=== PATIENT | male | born 1960 | race Caucasian/White ===

== ENCOUNTER 2016-07-05 06:01 | Inpatient (IN) | payer MEDICARE ==
[2016-07-05] MEDS ORDERED: Diltiazem DRIP* 100 ML IVPB ONE (06:42)
[2016-07-05] MEDS ORDERED: Diltiazem IV* 5 MG/ML 5 ML VIAL (for loading dose/IV Push) (25 MG) IV SLOW PU ONE ×2 (06:46→07:41)
[2016-07-05 06:48] LABS: Hematocrit 43 % (42-52); Mean Corpuscular HGB Conc 33 g/dl (31-36); Mean Corpuscular Hemoglobin 27 pg (27-31); Mean Corpuscular Volume 81 fL (80-94); Mean Platelet Volume 9 um3 (7.4-10.4); Red Blood Count 5.27 10^6/ul (4.0-5.4); Red Cell Distribution Width 16 % (10.5-15); White Blood Count 8.8 10^3/ul (3.5-10.8)
--- NOTE | 2016-07-05 07:00 | ED ---
Shortness of Breath - HPI Summary HPI Summary: 56 M presents with shortness of breath for a couple weeks. He has a history of a fib and is on Coumadin and metoprolol for it. He receives his care at the [facility]. They were suppose to refer him to a ceo & board director in [place] which they have no yet. He denies any change in his shortness of breath with position changes. He does sleep on many pillows at night and uses a CPAP. He denies any chest pain, palpitations, fever, or cough. He has not noticed any swelling in his legs. He does have a history of DM. - History of Current Complaint Chief Complaint: EDShortnessOfBreath Time Seen by Provider: 07/05/16 06:34 - Allergy/Home Medications Allergies/Adverse Reactions: Allergies Allergy/AdvReac Type Severity Reaction Status Date / Time No Known Allergies Allergy Verified 07/05/16 06:20 Home Medications: Home Medications Atorvastatin* [Lipitor*] 20 mg PO 2100 07/05/16 [History Confirmed 07/05/16] Cholecalciferol [D3-1000] 2,000 units PO DAILY 07/05/16 [History Confirmed 07/05] Fenofibrate [Tricor] 48 mg PO DAILY 07/05/16 [History Confirmed 07/05/16] Lisinopril [Zestril 40 MG-] 40 mg PO DAILY 07/05/16 [History Confirmed 07/05/16] Metformin HCl [Glucophage] 500 mg PO BID 07/05/16 [History Confirmed 07/05/16] Metoprolol Succinate XL TAB* [Toprol XL TAB*] 25 mg PO DAILY 07/05/16 [History Confirmed 07/05/16] Olanzapine [Zyprexa Zydis] 30 mg PO BEDTIME 07/05/16 [History Confirmed 07/05/16 ] Potassium Chlor TAB* [Klor Con ER TAB*] 10 meq PO DAILY 07/05/16 [History Confirmed 07/05/16] Prazosin CAP* [Minipress CAP*] 2 mg PO BEDTIME 07/05/16 [History Confirmed 07/05] Sertraline HCl [Zoloft] 150 mg PO DAILY 07/05/16 [History Confirmed 07/05/16] Trazodone HCl 100 mg PO BEDTIME 07/05/16 [History Confirmed 07/05/16] Warfarin Sodium [Jantoven] 4 mg PO TUWEFR 07/05/16 [History Confirmed 07/05/16] Warfarin TAB(*) [Coumadin TAB(*)] 1.5 mg PO SUMOTHSA 07/05/16 [History Confirmed 07/05/16] glipiZIDE TAB* [Glucotrol TAB*] 5 mg PO SEE INSTRUCTIONS 07/05/16 [History Confirmed 07/05/16] PMH/Surg Hx/FS Hx/Imm Hx Endocrine/Hematology History: Reports: Hx Anticoagulant Therapy - coumadin, Hx Diabetes Cardiovascular History: Reports: Hx Hypertension Denies: Other Cardiovascular Problems/Disorders Respiratory History: Denies: Other Respiratory Problems/Disorders Infectious Disease History: No Infectious Disease History: Denies: Traveled Outside the [place] in Last 30 Days - Family History Known Family History: Positive: Cardiac Disease - Social History Alcohol Use: None Substance Use Type: Reports: None Smoking Status (MU): Never Smoked Tobacco Review of Systems Negative: Fever Negative: Chest Pain Positive: Shortness Of Breath. Negative: Cough Negative: Abdominal Pain All Other Systems Reviewed And Are Negative: Yes Physical Exam Triage Information Reviewed: Yes Vital Signs On Initial Exam: Initial Vitals Temp Pulse Resp BP Pulse Ox 97.0 F 122 16 163/129 96 07/05/16 06:05 07/05/16 06:05 07/05/16 06:05 07/05/16 06:05 07/05/16 06:05 Vital Signs Reviewed: Yes Appearance: Positive: Well-Appearing Skin: Positive: Warm, Dry Head/Face: Positive: Normal Head/Face Inspection Eyes: Positive: Normal, Conjunctiva Clear ENT: Positive: Normal ENT inspection, Pharynx normal, TMs normal Respiratory/Lung Sounds: Positive: Clear to Auscultation, Breath Sounds Present Cardiovascular: Positive: Normal, Tachycardia Abdomen Description: Positive: Nontender, Soft Bowel Sounds: Positive: Present Musculoskeletal: Positive: Other - good pulses, no edema noted of legs. Negative: Edema Left, Edema Right - Domonique Coma Scale Coma Scale Total: 15 Diagnostics - Vital Signs Vital Signs Temp Pulse Resp BP Pulse Ox 07/05/16 06:25 128 18 167/122 96 07/05/16 06:18 124 20 96 07/05/16 06:05 97.0 F 122 16 163/129 96 - Laboratory Lab Results: Lab Results 07/05/16 Range/Units 06:30 WBC 8.8 (3.5-10.8) 10^3/ul RBC 5.27 (4.0-5.4) 10^6/ul Hgb 14.0 (14.0-18.0) g/dl Hct 43 (42-52) % MCV 81 (80-94) fL MCH 27 (27-31) pg MCHC 33 (31-36) g/dl RDW 16 H (10.5-15) % Plt Count 154 (150-450) 10^3/ul MPV 9 (7.4-10.4) um3 Neut % (Auto) 82.6 (38-83) % Lymph % (Auto) 9.9 L (25-47) % [place] % (Auto) 5.1 (1-9) % Eos % (Auto) 1.9 (0-6) % Baso % (Auto) 0.5 (0-2) % Absolute Neuts (auto) 7.3 (1.5-7.7) 10^3/ul Absolute Lymphs (auto) 0.9 L (1.0-4.8) 10^3/ul Absolute Monos (auto) 0.5 (0-0.8) 10^3/ul Absolute Eos (auto) 0.2 (0-0.6) 10^3/ul Absolute Basos (auto) 0 (0-0.2) 10^3/ul Absolute Nucleated RBC 0.01 10^3/ul Nucleated RBC % 0.1 Result Diagrams: 07/05/16 06:30 07/05/16 06:30 Lab Statement: Any lab studies that have been ordered have been reviewed, and results considered in the medical decision making process. - Radiology chest Xray Interpretation: Positive (See Comments) - IMPRESSION: INTERVAL INCREASE IN SIZE THE CARDIAC SILHOUETTE. EVALUATE FOR POSSIBLE MILD INTERSTITIAL CONGESTION OR PERICARDIAL EFFUSION. Radiology Interpretation Completed By: Radiologist - EKG 1st Cardiac Rate: Tachycardia EKG Rhythm: Atrial Fibrillation ST Segment: Non-Specific Ectopy: PVCs Re-Evaluation - Re-Evaluation First Eval Re-Evaluation Time: 08:29 Change: Unchanged Comment: HR now 90-115 after cardiazam Course/Dx - Course Course Of Treatment: 56M presents with shortness of breath for 3 weeks. Follow normally at [facility]. Came in in a fib with HR of 140. dr talamantes said to give cardizem and do cardiac work up. gave cardizem and rate 90-115. BMP elevated and troponin was .04. chest xray shows increase in size of cardiac silloutte. Spoke with dr christianson and said to discuss with hospitalist. hospitalist will admit for potential new onset of CHF - Diagnoses Differential Diagnosis/HQI/PQRI: Positive: CHF, Pulmonary Edema, Other - a fib Provider Diagnoses: Shortness of breath, Atrial fibrillation - Physician Notifications Discussed Care of Patient With: dr koenig Time Discussed With Above Provider: 08:35 - will see patient to discuss dispo Discharge - Discharge Plan Condition: Stable Disposition: [facility]
[2016-07-05 07:04] LABS: Albumin 3.6 g/dL (3.2-5.2); BUN/Creatinine Ratio 17.3 (8-20); EGFR African American 88.7 (>60); Globulin 2.5 g/dL (2-4); Magnesium 1.7 mg/dL (1.9-2.7); Potassium 3.7 mmol/L (3.5-5.0); Total Bilirubin 1.2 mg/dL (0.2-1.0); Total Protein 6.1 g/dL (6.4-8.9)
[2016-07-05 07:16] LABS: Troponin I 0.04 ng/mL (<0.04)
--- NOTE | 2016-07-05 07:21 | RAD ---
INDICATION: Short of breath COMPARISON: October 29, 2012 TECHNIQUE: An AP portable view obtained at 0700 hours is submitted. FINDINGS: Bones/Soft Tissues: There are no acute bony findings. Cardiomediastinal: Interval increase in size the cardiac silhouette. Lungs: There are no infiltrates. Pleura: There are no pleural effusions. Other: None IMPRESSION: INTERVAL INCREASE IN SIZE THE CARDIAC SILHOUETTE. EVALUATE FOR POSSIBLE MILD INTERSTITIAL CONGESTION OR PERICARDIAL EFFUSION.
[2016-07-05 07:27] LABS: TSH (Thyroid Stimulating Horm) 1.77 mcIU/mL (0.34-5.60)
[2016-07-05] MEDS ORDERED: Acetaminophen TAB* 325 MG PO PRN (10:25)
[2016-07-05] MEDS ORDERED: Potassium Chlor TAB* 20 MEQ TAB.ER PO ONE (10:28)
[2016-07-05] MEDS ORDERED: Magnesium Sulfate 2 GM IV* 2 GM/50 ML BAG IVPB ONE (10:30)
[2016-07-05 10:39] LABS: Urine Bacteria Absent (Absent); Urine Bilirubin Negative (Negative); Urine Glucose Negative (Negative); Urine Nitrite Negative (Negative)
[2016-07-05] MEDS: Metoprolol Tartrate TAB* 25 MG PO SCH ×3 (11:03→23:40)
[2016-07-05] MEDS: glipiZIDE TAB* 5 MG PO SCH (11:04)
--- NOTE | 2016-07-05 14:45 | HP ---
ADMISSION HISTORY AND PHYSICAL: DATE OF ADMISSION: 07/05/16 PRIMARY CARE PROVIDER: Yolie Carbajal NP, at the [facility], telephone number [phone]. PSYCHIATRIST: in [place]. HEALTHCARE PROXY: His sister, Macie, and daughter. CODE STATUS: Full. SOURCE OF INFORMATION: History obtained from interview with the patient and his [id number]. RELIABILITY: Good. CHIEF COMPLAINT: Shortness of breath. HISTORY OF PRESENT ILLNESS: This is a 56-year-old man, past medical history including THOMAS and atrial fibrillation. Just over the last 2 weeks, he had increasing shortness of breath, particularly with exertion. He notes that he has been exercising and walks 2 miles on a treadmill ever day. The last time he walked on the treadmill was 3 days prior. His exercise tolerance has now decreased from 2 miles down to 1 block and now he feels he gets short of breath just walking to the bathroom. He has experienced no chest pain, nausea, vomiting, lightheadedness, syncope, palpitations. However, he does endorse PND as well as increasing orthopnea from 1 to 3 pillows. He notices shortness of breath is worse when lying flat overnight and he has had difficulty sleeping. He was seen in the [facility] 3 days prior, was noted to be in atrial fibrillation. Unclear what rate that was; however, he was referred for a Cardiology appointment, which has not yet taken place. Additionally, they started him on an inhaler for his shortness of breath. He also was concerned that his CPAP has not been effective. He has been short of breath over at night. He says the machine does work, but he has been short of breath for 1 month. It is unclear if this is secondary to the machine or worsening CHF symptoms. He denies any lower extremity swelling and endorses a 30- pound weight loss over 3 months, which has been intentional with diet and exercise. Three weeks prior to this presentation, he had flu-like symptoms with fever, myalgias, decreased energy, but no cough, sore throat. He endorses heavy caffeine consumption with at least 4 cups of coffee per day. He drinks alcohol intermittently and notes he "gets plastered" one time every other week, with his last time of heavy alcohol consumption 2 weeks prior to this presentation. He does not smoke cigarettes; however, has significant exposure to secondhand smoke through his girlfriend. He does smoke significant amount of marijuana 4 times per day for 30 years. In the emergency room, he received IV diltiazem 10 mg twice and his heart rate was 100 to 120 when seen by this author. He felt his shortness of breath was much improved. PAST MEDICAL HISTORY: THOMAS on CPAP; atrial fibrillation, on Coumadin; type 2 diabetes, previously on insulin, now removed with weight loss; hypertension. PAST SURGICAL HISTORY: History of septoplasty, right tenoplasty, abdominal surgery for GERD symptoms. MEDICATIONS: Reviewed, per medication list: 1. Atorvastatin 20 mg once daily. 2. Cholecalciferol 2000 units daily. 3. Fenofibrate 48 mg daily. 4. Glucotrol 5 mg before lunch. 5. Coumadin 4 mg Thursday, Thursday, and Thursday. 6. Lisinopril 40 mg daily. 7. Metformin 500 mg twice daily. 8. Metoprolol succinate. It is listed as half a tab of 50 mg, which will be 25 mg, although it is noted that the succinate cannot be split. At this time, we suspect the metoprolol succinate is 25 mg daily. 9. Olanzapine 30 mg at bedtime. 10. Potassium chloride 10 mEq daily. 11. Prazosin 2 mg at bedtime. 12. Sertraline 150 mg daily. 13. Trazodone 100 mg at bedtime. 14. Coumadin 6 mg Thursday, , Thursday, and Thursday. ALLERGIES: No known drug allergies. FAMILY HISTORY: Significant for CAD in his mother, brother, and a sister. His father's history is unknown. SOCIAL HISTORY: No tobacco, although heavy secondhand exposure via his girlfriend. He smokes marijuana 4 times a day for 30 years. He drinks approximately 1 time a week; however, he does drink more heavily 1 time every other month, his last episode 2 weeks prior. He lives at [facility]. REVIEW OF SYSTEMS: As per HPI, otherwise all other systems negative. PHYSICAL EXAMINATION GENERAL: Sitting up in bed, obese, in no apparent distress. VITAL SIGNS: In the emergency room, blood pressure 165/120, heart rate 110 when seen by his author, respiratory rate 16, 97% on 2 L nasal cannula, T-max 97 degrees Fahrenheit. HEENT: Oropharynx is clear. Has moist mucous membranes. Sclerae are anicteric. NECK: Has nonelevated JVD. No cervical or supraclavicular lymphadenopathy. LUNGS: Have diffuse wheeze. HEART: Regularly irregular, tachycardic heart rate. No murmurs, rubs, or gallops. ABDOMEN: Obese, soft, nontender, and nondistended. EXTREMITIES: Warm, well perfused without clubbing, cyanosis, or edema. SKIN: Good skin turgor. Less than 2-second cap refill. The skin is intact and dry. NEUROLOGIC: He is alert and oriented x3. His cranial nerves II to XII are intact. He has no apparent agitation, anxiety, or depression. LABORATORY DATA: Labs reviewed, notable for BUN of 19, creatinine 1.1, glucose 213, hemoglobin A1c added on. White blood cell count is 8.8, hemoglobin 14, platelets 154. Data reviewed: EKG: Atrial fibrillation with ventricular response, 119, left axis, biphasic T waves in V4 and V5. Chest x-ray: Cardiomegaly with increased interstitial congestion. ASSESSMENT AND PLAN: This is a 56-year-old man, past medical history of atrial fibrillation, presenting in rapid ventricular response with symptoms of heart failure. 1. Atrial fibrillation with rapid ventricular response. Replete magnesium and potassium. The patient took his home dose metoprolol this morning. Begin additional 25 mg q.6 hours, titrate up for heart rate control. We will give additional IV metoprolol if needed for heart rate control. Check urine for any evidence of infection. 2. Increased troponin, 0.04 on 2 consecutive checks. We will stop checking. Check transthoracic echocardiogram in the setting of uncontrolled atrial fibrillation and an enlarged cardiac silhouette on x-ray with evidence of heart failure, with orthopnea and new PND. 3. Type 2 diabetes. Add on hemoglobin A1c. Check fingerstick glucose. Continue with home medications. 4. THOMAS. Continue home CPAP, _May benefit from outpatient____ titration study. Although unclear that his increased shortness of breath has anything to do with the CPAP machine. It may just be his CHF. 5. Hyperlipidemia. Continue home medications. 6. DVT prophylaxis. Coumadin INR has been drawn in the emergency room. [id number]/[facility] #: [id number] SANDRA
[2016-07-05] MEDS: metFORMIN* 500 MG TAB PO SCH (16:32)
[2016-07-05] MEDS ORDERED: Warfarin TAB(*) 6 MG PO SCH (17:00)
[2016-07-05] MEDS ORDERED: Warfarin TAB(*) 1 MG PO SCH (17:00)
[2016-07-05] MEDS: Metoprolol Tartrate IV* 1 MG/ML 5 ML VIAL IV PRN ×2 (17:10→21:16)
[2016-07-05] MEDS: Atorvastatin* 20 MG TAB PO SCH (20:56)
[2016-07-05] MEDS: OLANzapine TAB*ODT* 10 MG TAB PO SCH (20:56)
[2016-07-05] MEDS: Prazosin CAP* 1 MG PO SCH (20:57)
[2016-07-05] MEDS: traZODone TAB* 100 MG PO SCH (20:57)
[2016-07-06] MEDS: Metoprolol Tartrate TAB* 25 MG PO SCH ×4 (05:09→22:34)
[2016-07-06] MEDS: Metoprolol Tartrate IV* 1 MG/ML 5 ML VIAL IV PRN (05:35)
[2016-07-06 06:12] LABS: Hematocrit 45 % (42-52); Hemoglobin 14.8 g/dl (14.0-18.0); Mean Corpuscular HGB Conc 33 g/dl (31-36); Mean Corpuscular Hemoglobin 26 pg (27-31); Mean Corpuscular Volume 81 fL (80-94); Mean Platelet Volume 10 um3 (7.4-10.4); Red Blood Count 5.59 10^6/ul (4.0-5.4); Red Cell Distribution Width 16 % (10.5-15); White Blood Count 9.5 10^3/ul (3.5-10.8)
[2016-07-06 06:24] LABS: BUN/Creatinine Ratio 20.7 (8-20); EGFR African American 83.5 (>60); EGFR Non-African American 64.9 (>60)
[2016-07-06] MEDS: metFORMIN* 500 MG TAB PO SCH ×2 (08:56→17:02)
[2016-07-06] MEDS: Sertraline* 50 MG TAB PO SCH (08:56)
[2016-07-06] MEDS: Potassium Chlor TAB* 10 MEQ TAB.ER PO SCH (08:56)
[2016-07-06] MEDS: Lisinopril TAB* 10 MG PO SCH (08:57)
[2016-07-06] MEDS: FENOFIBRATE 48 MG PO SCH (09:02)
[2016-07-06] MEDS: glipiZIDE TAB* 5 MG PO SCH (12:11)
--- NOTE | 2016-07-06 13:15 | PN ---
Subjective Date of Service: 07/06/16 Interval History: Patient has SOB at rest and with minimal exertion. States smokes marijuana 4x/day, never tobacco user. Has had a-fib for >15 years, but never admitted with RVR prior. Denies chest pain Denies h/o COPD or asthma Family History: Unchanged from Admission Social History: Findings - marijuana abuse Past Medical History: Unchanged from Admission Objective Active Medications: Acetaminophen (Tylenol Tab*) 650 mg PO Q4H PRN PRN Reason: FEVER/PAIN Atorvastatin Calcium (Lipitor*) 20 mg PO 2100 [facility] Last Admin: 07/05/16 20:56 Dose: 20 mg Fenofibrate (Tricor(Nf)) 48 mg PO DAILY [facility] Last Admin: 07/06/16 09:02 Dose: Not Given Glipizide (Glucotrol Tab*) 5 mg PO DAILY@1200 [facility] Last Admin: 07/06/16 12:11 Dose: 5 mg Lisinopril (Prinivil Tab*) 40 mg PO DAILY [facility] Last Admin: 07/06/16 08:57 Dose: 40 mg Metformin HCl (Glucophage*) 500 mg PO BID WITH MEALS [facility] Last Admin: 07/06/16 08:56 Dose: 500 mg Metoprolol Tartrate (Lopressor Tab*) 25 mg PO Q6H [facility] Last Admin: 07/06/16 11:16 Dose: 25 mg Metoprolol Tartrate (Lopressor Iv*) 5 mg IV Q6H PRN PRN Reason: heart rate Last Admin: 07/06/16 05:35 Dose: 5 mg Olanzapine (Zyprexa *Odt*) 30 mg PO BEDTIME [facility] Last Admin: 07/05/16 20:56 Dose: 30 mg Potassium Chloride (Klor Con Er Tab*) 10 meq PO DAILY [facility] Last Admin: 07/06/16 08:56 Dose: 10 meq Prazosin HCl (Minipress Cap*) 2 mg PO BEDTIME [facility] Last Admin: 07/05/16 20:57 Dose: 2 mg Sertraline HCl (Zoloft*) 150 mg PO DAILY [facility] Last Admin: 07/06/16 08:56 Dose: 150 mg Trazodone HCl (Desyrel Tab*) 100 mg PO BEDTIME [facility] Last Admin: 07/05/16 20:57 Dose: 100 mg Warfarin Sodium (Coumadin Tab(*)) 4 mg PO DAILY@1700 [facility] PRN Reason: Protocol Vital Signs 07/05/16 07/05/16 07/06/16 23:44 23:47 00:15 Temperature 36.9 C 36.9 C Pulse Rate 138 Respiratory 18 20 Rate Blood Pressure 160/110 150/112 (mmHg) O2 Sat by Pulse 95 99 Oximetry 07/06/16 07/06/16 07/06/16 03:47 04:20 07:40 Temperature 36.8 C Pulse Rate 100 109 Respiratory 20 24 Rate Blood Pressure 165/110 (mmHg) O2 Sat by Pulse 96 Oximetry 07/06/16 08:01 Temperature 36.8 C Pulse Rate 117 Respiratory 16 Rate Blood Pressure 180/115 (mmHg) O2 Sat by Pulse 93 Oximetry Oxygen Devices in Use Now: Nasal Cannula Eyes: No Scleral Icterus Ears/Nose/Mouth/Throat: Clear Oropharnyx Neck: NL Appearance and Movements; NL JVP, No Thyroid Enlargement, Masses Respiratory: Symmetrical Chest Expansion and Respiratory Effort, Clear to Percussion, - - rales right base Cardiovascular: No Edema, - - tachy, irregular, no murmur Abdominal: NL Sounds; No Tenderness; No Distention Lymphatic: No Cervical Adenopathy Extremities: No Edema Neurological: Alert and Oriented x 3 Lines/Tubes/Other Access: Clean, Dry and Intact Peripheral IV Result Diagrams: 07/06/16 05:25 07/06/16 05:25 Additional Lab and Data: Lab Results Laboratory Tests 07/05/16 07/05/16 07/05/16 12:09 16:32 21:23 INR (Anticoag Therapy) Glucose POC Glucose (mg/dL) 133 H 151 H 148 H 07/06/16 07/06/16 07/06/16 05:25 05:25 07:32 INR (Anticoag Therapy) 4.09 H Glucose 132 H POC Glucose (mg/dL) 153 H 07/06/16 11:40 INR (Anticoag Therapy) Glucose POC Glucose (mg/dL) 100 EKG Data: telemetry w/ rate varying 59-180 Assess/Plan/Problems-Billing Assessment: 56 year old with chronic A-fib, schizophrenia, admitted with dyspnea, a-fib with RVR. - Patient Problems (1) Atrial fibrillation with rapid ventricular response Current Visit: Yes Status: Acute Priority: High Code(s): I48.91 - UNSPECIFIED ATRIAL FIBRILLATION SNOMED Code(s): 638969133971088 Comment: -Unclear why rate control is poor at this time. May have pulmonary infection, anxiety. -Rapid rate and uncontrolled HTN likely causing diastolic dysfuction. -echo pending, BNP added on -adding diltiazem PO for rate control -may need dose diuretic later in day -INR 4.0, dose of warfarin reduced, recheck INR tomorrow (2) Troponin level elevated Current Visit: Yes Status: Acute Priority: Medium Code(s): R74.8 - ABNORMAL LEVELS OF OTHER SERUM ENZYMES SNOMED Code(s): 708270743 Comment: -likely demand ischemia -would schedule outpatient stress test (3) DVT prophylaxis Current Visit: Yes Status: Acute Priority: Low Code(s): TPP4567 - SNOMED Code(s): 607934886 Comment: on warfarin PO (4) Dyspnea and respiratory abnormalities Current Visit: Yes Status: Acute Priority: Medium Code(s): R06.00 - DYSPNEA, UNSPECIFIED; R06.89 - OTHER ABNORMALITIES OF BREATHING SNOMED Code(s) : 377102007 Comment: -may have element of viral bronchitis or COPD from chronic marijuana use -outpatient PFTs indicated Status and Disposition: patient wants new PCP, no longer following at [facility]. Offered to see him at my office,call [phone] to make appt prior to discharge
[2016-07-06] MEDS: Diltiazem TAB* 30 MG PO SCH ×2 (13:26→17:21)
[2016-07-06] MEDS ORDERED: Furosemide IV* 10 MG/ML 2 ML VIAL (20 MG) IV ONE (14:10)
[2016-07-06] MEDS ORDERED: Warfarin TAB(*) 4 MG PO SCH (17:00)
[2016-07-06] MEDS: traZODone TAB* 100 MG PO SCH (22:34)
[2016-07-06] MEDS: Atorvastatin* 20 MG TAB PO SCH (22:34)
[2016-07-06] MEDS: OLANzapine TAB*ODT* 10 MG TAB PO SCH (22:34)
[2016-07-06] MEDS: Prazosin CAP* 1 MG PO SCH (22:35)
[2016-07-07] MEDS: Diltiazem TAB* 30 MG PO SCH ×3 (02:32→12:32)
[2016-07-07] MEDS: Metoprolol Tartrate TAB* 25 MG PO SCH ×2 (05:30→10:34)
[2016-07-07] MEDS: Metoprolol Tartrate IV* 1 MG/ML 5 ML VIAL IV PRN ×2 (05:31→23:57)
[2016-07-07 06:40] LABS: BUN/Creatinine Ratio 22.3 (8-20); Calcium 8.8 mg/dL (8.6-10.3); EGFR African American 86.9 (>60); EGFR Non-African American 67.6 (>60); Potassium 3.9 mmol/L (3.5-5.0)
[2016-07-07] MEDS: Potassium Chlor TAB* 10 MEQ TAB.ER PO SCH (08:33)
[2016-07-07] MEDS: metFORMIN* 500 MG TAB PO SCH ×2 (08:33→17:25)
[2016-07-07] MEDS: Lisinopril TAB* 10 MG PO SCH (08:33)
[2016-07-07] MEDS: FENOFIBRATE 48 MG PO SCH (08:34)
[2016-07-07] MEDS: Sertraline* 50 MG TAB PO SCH (08:34)
--- NOTE | 2016-07-07 11:06 | ECHO ---
Patient: NATO PÉREZ [facility] Rec#: [id number] : 1960 Date: 07/07/2016 Age: 56y Height: 167.64 cm / 66.0 in Weight: 111.13 kg / 244.9 lbs Sex: M BSA: 2.18 Room#: 435 Admit Date#: 07/05/2016 Type: Inpatient Referring: Nato Jackson MD Reading: Tyler Sanchez MD Picture Framer: Lucero Terrazas Picture Framer: Peri Pappas [facility] Transthoracic Echocardiogram Indication: CHF, A-Fib BP: 141/114 HR: 101 Rhythm: A-Fib Findings History: HTN, DM, THOMAS on CPAP, A-Fib, secondhand smoker. Technical Comments: The study quality is good. Completed at 0850. Left Ventricle: The left ventricular chamber size is normal. Moderate to severe concentric left ventricular hypertrophy is observed. There is diffuse global hypokinesis of the left ventricle. There is moderately decreased left ventricular systolic function. The estimated ejection fraction is 30-35%. The assessment of diastolic function is non-diagnostic. Left Atrium: The left atrium is mildly dilated. Right Ventricle: The right ventricular cavity size is normal. The right ventricular global systolic function is mildly reduced. Right Atrium: The right atrium is moderately dilated. Aortic Valve: The aortic valve is trileaflet. There is no evidence of aortic regurgitation. There is no evidence of aortic stenosis. Mitral Valve: The mitral valve leaflets are mildly thickened. There is moderate mitral regurgitation. There is no evidence of mitral stenosis. Tricuspid Valve: The tricuspid valve leaflets are normal. There is moderate tricuspid regurgitation. The tricuspid regurgitant jet is directed toward the septum. No pulmonary hypertension is noted. There is no tricuspid stenosis. Pulmonic Valve: The pulmonic valve appears normal. There is a trace pulmonic regurgitation. There is no pulmonic stenosis. Pericardium: A trivial pericardial effusion is visualized. There are no signs of significant hemodynamic compromise. Aorta: There is mild dilatation of the ascending aorta.3.7 cm There is no dilatation of the aortic arch. There is no dilation of the aortic root. Pulmonary Artery: The main pulmonary artery appears normal. Venous: The inferior vena cava is dilated. There is a greater than 50% respiratory change in the inferior vena cava dimension. Summary: There was not any prior study for comparison. Conclusions Moderate to severe concentric left ventricular hypertrophy is observed. There is diffuse global hypokinesis of the left ventricle. The estimated ejection fraction is 30-35%. The assessment of diastolic function is non-diagnostic. The right ventricular global systolic function is mildly reduced. There is no evidence of aortic regurgitation. There is no evidence of aortic stenosis. There is moderate mitral regurgitation. There is moderate tricuspid regurgitation. No pulmonary hypertension is noted. A trivial pericardial effusion is visualized. There are no signs of significant hemodynamic compromise. There is mild dilatation of the ascending aorta.3.7 cm There was not any prior study for comparison. Measurements Name Value Normal Range RVIDd (AP) 2D 3.6 cm (0.9 - 2.6) RVDdMajor (2D) 3.9 cm (2.2 - 4.4) RAd ISD 4CH 6.5 cm (3.4 - 4.9) RA (A4C)W 5 cm (2.9 - 4.6) IVSd (2D) 2.1 cm (0.6 - 1) LVPWd (2D) 1.8 cm (0.6 - 1) LVIDd (2D) 4.6 cm (3.6 - 5.4) LVIDs (2D) 4.1 cm - LV FS (2D) 11 % (25 - 45) Aortic Annulus 2 cm (1.4 - 2.6) Ao root diameter (2D) 3.3 cm (2.1 - 3.5) Ascending Ao 3.7 cm (2.1 - 3.4) Aortic arch 3 cm (1.8 - 3.4) LA dimension (AP) 2D 4.5 cm (2.3 - 3.8) LAd ISD 4CH 5.7 cm (2.9 - 5.3) LA ISD 4CH W 4.8 cm (2.5 - 4.5) Name Value Normal Range LA ESV SP 4CH (A/L) 64 ml - LA ESV SP 2CH (A/L) 92 ml - LA ESV BP (A/L) 77 ml - LA ESV BP (A/L) index 35.34 ml/m2 - LA ESV SP 4CH (MOD) 60 ml - LA ESV SP 2CH (MOD) 88 ml - Name Value Normal Range MV E-wave Vmax 1.1 m/sec - MV deceleration time 145 msec - LV septal e' Vmax 0.07 m/sec - LV lateral e' Vmax 0.09 m/sec - LV E:e' septal ratio 15.7 ratio - LV E:e' lateral ratio 12.2 ratio - Name Value Normal Range AV Vmax 1 m/sec - AV VTI 20 cm - AV peak gradient 3.89 mmHg - AV mean gradient 3.19 mmHg - LVOT Vmax 0.9 m/sec - LVOT VTI 14 cm - LVOT peak gradient 3.33 mmHg - LVOT mean gradient 1.68 mmHg - JAYMIE Vmax 0.4 m/sec - Name Value Normal Range TR Vmax 2 m/sec - TR peak gradient 16 mmHg - RAP 8 mmHg - RVSP 24 mmHg - IVC diameter 2.3 cm - Name Value Normal Range PV Vmax 0.64 m/sec - PV peak gradient 1.71 mmHg -
[2016-07-07] MEDS: glipiZIDE TAB* 5 MG PO SCH (12:32)
[2016-07-07] MEDS ORDERED: Furosemide IV* 10 MG/ML 2 ML VIAL (20 MG) IV SLOW PU ONE (13:54)
--- NOTE | 2016-07-07 16:46 | PN ---
Subjective Date of Service: 07/07/16 Interval History: Patient seen and examined at bedside. He states, "I feel so much better." Denies CP, SOB, abd pain, n/v. Daughter and sister at bedside - they express concern that patient has poor short term memory and will often forget new information given to him. Patient previously not on O2 but is still requiring it here. He previously was established with [facility] but has had poor follow-up. 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 Telemetry: Atrial fibrillation 90s-100s Family History: Unchanged from Admission Social History: Findings - marijuana abuse and chronic secondhand smoke exposure Past Medical History: Unchanged from Admission Objective Active Medications: Acetaminophen (Tylenol Tab*) 650 mg PO Q4H PRN PRN Reason: FEVER/PAIN Atorvastatin Calcium (Lipitor*) 20 mg PO 2100 [facility] Last Admin: 07/06/16 22:34 Dose: 20 mg Fenofibrate (Tricor(Nf)) 48 mg PO DAILY [facility] Last Admin: 07/07/16 08:34 Dose: 48 mg Glipizide (Glucotrol Tab*) 5 mg PO DAILY@1200 [facility] Last Admin: 07/07/16 12:32 Dose: 5 mg Lisinopril (Prinivil Tab*) 40 mg PO DAILY [facility] Last Admin: 07/07/16 08:33 Dose: 40 mg Metformin HCl (Glucophage*) 500 mg PO BID WITH MEALS [facility] Last Admin: 07/07/16 08:33 Dose: 500 mg Metoprolol Succinate (Toprol Xl Tab*) 50 mg PO BID [facility] Metoprolol Tartrate (Lopressor Iv*) 5 mg IV Q6H PRN PRN Reason: heart rate Last Admin: 07/07/16 05:31 Dose: 5 mg Olanzapine (Zyprexa *Odt*) 30 mg PO BEDTIME [facility] Last Admin: 07/06/16 22:34 Dose: 30 mg Potassium Chloride (Klor Con Er Tab*) 10 meq PO DAILY [facility] Last Admin: 07/07/16 08:33 Dose: 10 meq Prazosin HCl (Minipress Cap*) 2 mg PO BEDTIME [facility] Last Admin: 07/06/16 22:35 Dose: 2 mg Sertraline HCl (Zoloft*) 150 mg PO DAILY [facility] Last Admin: 07/07/16 08:34 Dose: 150 mg Trazodone HCl (Desyrel Tab*) 100 mg PO BEDTIME [facility] Last Admin: 07/06/16 22:34 Dose: 100 mg Warfarin Sodium (Coumadin Tab(*)) 4 mg PO DAILY@1700 [facility] PRN Reason: Protocol Last Admin: 07/06/16 17:02 Dose: 4 mg Vital Signs 07/06/16 07/06/16 07/06/16 19:44 20:00 23:37 Temperature 97.9 F 98.3 F Pulse Rate 110 90 Respiratory 22 22 20 Rate Blood Pressure 152/96 140/73 (mmHg) O2 Sat by Pulse 98 97 Oximetry 07/07/16 07/07/16 07/07/16 00:00 02:31 03:42 Temperature 98.6 F Pulse Rate 109 89 Respiratory 28 Rate Blood Pressure 159/109 151/94 (mmHg) O2 Sat by Pulse 97 92 Oximetry 07/07/16 07/07/16 07/07/16 04:17 05:24 06:27 Temperature Pulse Rate 126 106 Respiratory 24 Rate Blood Pressure 142/95 141/114 (mmHg) O2 Sat by Pulse Oximetry 07/07/16 07/07/16 07/07/16 07:56 08:30 08:51 Temperature 98.5 F Pulse Rate 103 Respiratory 16 Rate Blood Pressure 143/113 (mmHg) O2 Sat by Pulse 99 Oximetry 07/07/16 07/07/16 07/07/16 10:38 11:23 12:32 Temperature 97.6 F 98.0 F Pulse Rate 59 79 101 Respiratory 16 Rate Blood Pressure 155/96 159/103 (mmHg) O2 Sat by Pulse 100 97 Oximetry 07/07/16 15:16 Temperature Pulse Rate Respiratory Rate Blood Pressure (mmHg) O2 Sat by Pulse 97 Oximetry Oxygen Devices in Use Now: Nasal Cannula Appearance: Male patient, sitting up in bed, in NAD Eyes: PERRLA Ears/Nose/Mouth/Throat: Clear Oropharnyx, Mucous Membranes Moist Neck: NL Appearance and Movements; NL JVP Respiratory: Symmetrical Chest Expansion and Respiratory Effort, - - fine crackles in bases Cardiovascular: - - irregular rate/rhythm, tachycardic Abdominal: NL Sounds; No Tenderness; No Distention Extremities: No Clubbing, Cyanosis - mild pretibial edema Skin: No Nodules or Sclerosis Neurological: Alert and Oriented x 3 - forgetful Lines/Tubes/Other Access: Clean, Dry and Intact Peripheral IV Result Diagrams: 07/06/16 05:25 07/07/16 05:41 Additional Lab and Data: Lab Results Laboratory Tests 07/05/16 07/05/16 07/05/16 12:09 16:32 21:23 INR (Anticoag Therapy) Glucose POC Glucose (mg/dL) 133 H 151 H 148 H 07/06/16 07/06/16 07/06/16 05:25 05:25 07:32 INR (Anticoag Therapy) 4.09 H Glucose 132 H POC Glucose (mg/dL) 153 H 07/06/16 11:40 INR (Anticoag Therapy) Glucose POC Glucose (mg/dL) 100 EKG Data: telemetry w/ rate varying 59-180 Assess/Plan/Problems-Billing Assessment: 56 year old with chronic A-fib, schizophrenia, admitted with dyspnea, a-fib with RVR. - Patient Problems (1) Atrial fibrillation with rapid ventricular response Current Visit: Yes Code(s): I48.91 - UNSPECIFIED ATRIAL FIBRILLATION Comment : Unclear why rate control is poor at this time. May have pulmonary infection, anxiety. Echocardiogram shows diffuse global hypokinesis of the LV, EF 30-35%, mild reduction of right global systolic function, and moderate MR and TR. Assessment of diastolic dysfunction non-diagnostic. Continue diltiazem. IV furosemide today. Appreciate cardiology consult; patient will need outpatient cardiology follow- up and repeat echocardiogram. INR 3.8, dose of warfarin reduced, recheck INR tomorrow. (2) Dyspnea and respiratory abnormalities Code(s): R06.00 - DYSPNEA, UNSPECIFIED; R06.89 - OTHER ABNORMALITIES OF BREATHING Comment: May have element of viral bronchitis or COPD from chronic marijuana use and secondhand smoke exposure. Outpatient PFTs indicated. (3) Troponin level elevated Code(s): R74.8 - ABNORMAL LEVELS OF OTHER SERUM ENZYMES Comment: Likely demand ischemia, recommend outpatient stress test with PCP. (4) Obstructive sleep apnea Code(s): G47.33 - OBSTRUCTIVE SLEEP APNEA (ADULT) (PEDIATRIC) Comment: Continue CPAP use. ? effectiveness of current therapy. Obtain overnight pulse oximetry. (5) Diabetes mellitus Code(s): E11.9 - TYPE 2 DIABETES MELLITUS WITHOUT COMPLICATIONS Comment: HgbA1c 6.4 Reasonably controlled, BG 130s-170s Continue glipizide and metformin. (6) HLD (hyperlipidemia) Code(s): E78.5 - HYPERLIPIDEMIA, UNSPECIFIED Comment: Continue atorvastatin. (7) DVT prophylaxis Code(s): GTM6291 - Comment: Warfarin Status and Disposition: Inpatient admission, anticipate LOS >2 days. Patient wants new PCP, no longer following at [place]. Dr. Kunz agreed to be new PCP, call [phone] to make appt prior to discharge.
[2016-07-07] MEDS ORDERED: Warfarin TAB(*) 2.5 MG PO ONE (17:00)
[2016-07-07] MEDS: Metoprolol Succinate XL TAB* 50 MG PO SCH ×2 (18:13→20:50)
[2016-07-07] MEDS: Atorvastatin* 20 MG TAB PO SCH (20:49)
[2016-07-07] MEDS: OLANzapine TAB*ODT* 10 MG TAB PO SCH (20:51)
[2016-07-07] MEDS: Prazosin CAP* 1 MG PO SCH (20:52)
[2016-07-07] MEDS: traZODone TAB* 100 MG PO SCH (20:53)
--- NOTE | 2016-07-07 22:30 | CONS ---
CARDIOLOGY CONSULTATION: DATE OF CONSULT: 07/07/16 INDICATION FOR CONSULTATION: Atrial fibrillation, cardiomyopathy. HISTORY OF PRESENT ILLNESS: The patient is a 56-year-old gentleman with a history of chronic atrial fibrillation, obstructive sleep apnea, obesity, congestive heart failure, type 2 diabetes who was admitted to the hospital with shortness of breath. The patient states that over the last 2 weeks or so, he has had progressive shortness of breath and some degree of orthopnea. The patient states that he has noticed that his belly has increasing girth. He has had some mild lower extremity edema. The patient denies any anginal type symptoms. He denies any palpitations. He denies any light headedness, dizziness or syncope. The patient is followed in the cardiology clinic at [facility]. The patient does not recall ever having an echo-cardiogram. He has been on anticoagulation for a number of years. The patient was brought to the emergency room for evaluation. He was found to be in atrial fibrillation with rapid ventricular response and evidence of congestive heart failure. The patient was admitted to the hospital last night, he was given IV diuresis with a significant diuresis and improvement in his symptoms. Again, the patient has no anginal type symptoms. PAST MEDICAL HISTORY: Significant for obstructive sleep apnea, chronic atrial fibrillation, diabetes, hypertension, obesity. PAST SURGICAL HISTORY: Septoplasty, abdominal symptoms for GERD two back surgery. OUTPATIENT MEDICATIONS: 1. Atorvastatin 20 mg a day. 2. Cholecalciferol 2000 units a day. 3. Fenofibrate 48 mg a day. 4. Glucotrol 5 mg once a day. 5. Coumadin as directed. 6. Lisinopril 40 mg a day. 7. Metformin 500 mg b.i.d. 8. Metoprolol succinate 25 mg b.i.d. 9. Potassium 10 mEq a day. 10. Prazosin 2 mg a day. 11. Sertraline 150 mg a day. 12. Trazodone 100 mg a day. The patient is not on a statin therapy. ALLERGIES: No known drug allergies. FAMILY HISTORY: His mother had a history of coronary artery disease. He does not know his father's history. SOCIAL HISTORY: The patient denies any cigarette use. He does smoke marijuana on a regular basis. He has one alcohol drink a week. He lives at [facility]. 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 PHYSICAL EXAMINATION: Height is 5 feet 6 inches, weight is 242 pounds. Temperature 97.6, heart rate is 99, respiratory rate is 16, blood pressure 155/ 96. Sclerae anicteric. Oropharynx is pink without erythema. Carotids are 2+ without bruits. JVD is normal. Thyroid is normal. Cardiac Exam: Irregular, S1 , S2 without any murmurs, rubs or gallops. PMI is difficult to assess. Lungs are clear to auscultation bilaterally. There is no dullness to percussion. Abdomen is obese, soft, nontender, nondistended with normoactive bowel sounds. Extremities show minimal edema. He has 2+ pulses throughout. The patient is awake, alert and oriented. He moves all 4 extremities equally. DIAGNOSTIC STUDIES/LAB DATA: Chemistry is within normal limits. BUN 25, creatinine 1.1. Troponin is minimally elevated at 0.04. BNP is 386. AST and ALT are normal. TSH 1.77. An EKG done today demonstrated atrial fibrillation with a heart rate of 119 beats per minute, otherwise unremarkable. His echocardiogram today demonstrated normal LV size with moderately reduced LV systolic function. Ejection fraction of 35%. There is global hypokinesis. Right ventricle had mildly reduced LV systolic function. There was no evidence of aortic valve disease. There was moderate mitral regurgitation, moderate tricuspid regurgitation. No evidence of pulmonary hypertension. IMPRESSION: This is a 56-year-old gentleman with a history of sleep apnea, history of diabetes and hypertension who was admitted to the hospital because of increased shortness of breath. The patient was found to be in atrial fibrillation, although I think, the patient is chronically in atrial fibrillation, the patient is followed by [facility] in [place]. He is on chronic anticoagulation. In speaking with the patient, the patient states that clearly in the last 5 days , he has had a significant increase in shortness of breath. I think this is due to congestive heart failure and fluid retention. The patient was given IV diuresis last night and had an appropriate diuresis with a significant improvement in his symptoms. The patient had no significant troponin abnormalities. No clear evidence of ischemia. RECOMMENDATIONS: For now, my recommendation is to concentrate on rate control of this patient. I think I would like to see his heart rate under good control for the next 5 to 7 weeks and then a repeat echocardiogram at that time. The patient will be started on long acting Toprol for his rate control. The patient will continue on anticoagulation. The patient does have a history of diabetes. He should be on a statin therapy. The patient's blood pressure will be followed closely. At this point, I do not think any ischemic workup is necessary. I will see the patient for followup. We will get a repeat echocardiogram in 5 weeks to follow up on his LV function. [id number]/[facility] #: [id number] SANDRA
[2016-07-08 05:04] LABS: Hematocrit 43 % (42-52); Hemoglobin 14.2 g/dl (14.0-18.0); Mean Corpuscular HGB Conc 33 g/dl (31-36); Mean Corpuscular Hemoglobin 27 pg (27-31); Mean Corpuscular Volume 81 fL (80-94); Mean Platelet Volume 9 um3 (7.4-10.4); Red Blood Count 5.31 10^6/ul (4.0-5.4); Red Cell Distribution Width 17 % (10.5-15)
[2016-07-08 05:21] LABS: BUN/Creatinine Ratio 22.6 (8-20); EGFR African American 92.6 (>60); Potassium 3.4 mmol/L (3.5-5.0)
[2016-07-08] MEDS: Metoprolol Tartrate IV* 1 MG/ML 5 ML VIAL IV PRN (06:37)
[2016-07-08] MEDS: Lisinopril TAB* 10 MG PO SCH (08:21)
[2016-07-08] MEDS: Sertraline* 50 MG TAB PO SCH (08:22)
[2016-07-08] MEDS: FENOFIBRATE 48 MG PO SCH (08:22)
[2016-07-08] MEDS: Metoprolol Succinate XL TAB* 50 MG PO SCH (08:22)
[2016-07-08] MEDS: metFORMIN* 500 MG TAB PO SCH ×2 (08:22→17:28)
[2016-07-08] MEDS: Potassium Chlor TAB* 10 MEQ TAB.ER PO SCH (08:22)
[2016-07-08] MEDS ORDERED: Metoprolol Succinate XL TAB* 50 MG PO ONE (08:38)
[2016-07-08] MEDS ORDERED: Potassium Chlor TAB* 20 MEQ TAB.ER PO ONE (09:00)
--- NOTE | 2016-07-08 11:44 | PN ---
Subjective Date of Service: 07/08/16 Interval History: Patient seen and examined at bedside. He feels as if his breathing is much better with the metoprolol. He denies CP, abd pain, n/v, BLE edema. He is not requiring O2 as often. The patient states that he has a CPAP machine at home, and he uses it daily. He would like to have his [facility]AS managed by [facility]. Telemetry: Atrial fibrillation 110s-130s Family History: Unchanged from Admission Social History: Findings - marijuana abuse and chronic secondhand smoke exposure Past Medical History: Unchanged from Admission Objective Active Medications: Acetaminophen (Tylenol Tab*) 650 mg PO Q4H PRN PRN Reason: FEVER/PAIN Atorvastatin Calcium (Lipitor*) 20 mg PO 2100 [facility] Last Admin: 07/07/16 20:49 Dose: 20 mg Fenofibrate (Tricor(Nf)) 48 mg PO DAILY [facility] Last Admin: 07/08/16 08:22 Dose: 48 mg Glipizide (Glucotrol Tab*) 5 mg PO DAILY@1200 [facility] Last Admin: 07/07/16 12:32 Dose: 5 mg Lisinopril (Prinivil Tab*) 40 mg PO DAILY [facility] Last Admin: 07/08/16 08:21 Dose: 40 mg Metformin HCl (Glucophage*) 500 mg PO BID WITH MEALS [facility] Last Admin: 07/08/16 08:22 Dose: 500 mg Metoprolol Succinate (Toprol Xl Tab*) 100 mg PO BID [facility] Metoprolol Tartrate (Lopressor Iv*) 5 mg IV Q6H PRN PRN Reason: heart rate Last Admin: 07/08/16 06:37 Dose: 5 mg Olanzapine (Zyprexa *Odt*) 30 mg PO BEDTIME [facility] Last Admin: 07/07/16 20:51 Dose: 30 mg Potassium Chloride (Klor Con Er Tab*) 10 meq PO DAILY [facility] Last Admin: 07/08/16 08:22 Dose: 10 meq Prazosin HCl (Minipress Cap*) 2 mg PO BEDTIME [facility] Last Admin: 07/07/16 20:52 Dose: 2 mg Sertraline HCl (Zoloft*) 150 mg PO DAILY [facility] Last Admin: 07/08/16 08:22 Dose: 150 mg Trazodone HCl (Desyrel Tab*) 100 mg PO BEDTIME [facility] Last Admin: 07/07/16 20:53 Dose: 100 mg Warfarin Sodium (Coumadin Tab(*)) 2.5 mg PO ONCE@1700 [facility] PRN Reason: Protocol Stop: 07/08/16 17:01 Warfarin Sodium (Coumadin Tab(*)) 4 mg PO DAILY@1700 [facility] PRN Reason: Protocol Vital Signs 07/07/16 07/07/16 07/07/16 12:32 15:16 15:44 Temperature 98.4 F Pulse Rate 101 61 Respiratory 24 Rate Blood Pressure 152/106 (mmHg) O2 Sat by Pulse 97 96 Oximetry 07/07/16 07/07/16 07/07/16 18:17 19:51 20:41 Temperature 98.7 F Pulse Rate 105 99 Respiratory 20 20 Rate Blood Pressure 150/111 175/118 (mmHg) O2 Sat by Pulse 98 100 Oximetry 07/07/16 07/08/16 07/08/16 23:58 00:00 00:14 Temperature 96.6 F Pulse Rate 157 Respiratory Rate Blood Pressure 147/106 (mmHg) O2 Sat by Pulse 100 Oximetry 07/08/16 07/08/16 07/08/16 00:53 03:23 06:21 Temperature Pulse Rate 108 Respiratory 24 18 Rate Blood Pressure 153/94 (mmHg) O2 Sat by Pulse 91 96 98 Oximetry 07/08/16 07/08/16 07/08/16 06:49 07:54 08:00 Temperature 97.6 F Pulse Rate 150 110 Respiratory 16 20 Rate Blood Pressure 153/104 178/106 (mmHg) O2 Sat by Pulse 98 Oximetry 07/08/16 08:34 Temperature Pulse Rate Respiratory Rate Blood Pressure 146/85 (mmHg) O2 Sat by Pulse Oximetry Oxygen Devices in Use Now: Nasal Cannula Appearance: Male patient, sitting up in bed, in NAD Eyes: PERRLA Ears/Nose/Mouth/Throat: Clear Oropharnyx, Mucous Membranes Moist Neck: NL Appearance and Movements; NL JVP Respiratory: Symmetrical Chest Expansion and Respiratory Effort, Clear to Auscultation Cardiovascular: - - S1, S2, irregular rate/rhythm, tachycardic Abdominal: NL Sounds; No Tenderness; No Distention Extremities: No Edema Skin: No Rash or Ulcers Neurological: Alert and Oriented x 3 Lines/Tubes/Other Access: Clean, Dry and Intact Peripheral IV Nutrition: Taking PO's Result Diagrams: 07/08/16 04:14 07/08/16 04:14 Additional Lab and Data: Lab Results Laboratory Tests 07/05/16 07/05/16 07/05/16 12:09 16:32 21:23 INR (Anticoag Therapy) Glucose POC Glucose (mg/dL) 133 H 151 H 148 H 07/06/16 07/06/16 07/06/16 05:25 05:25 07:32 INR (Anticoag Therapy) 4.09 H Glucose 132 H POC Glucose (mg/dL) 153 H 07/06/16 11:40 INR (Anticoag Therapy) Glucose POC Glucose (mg/dL) 100 EKG Data: telemetry w/ rate varying 59-180 Assess/Plan/Problems-Billing Assessment: 56 year old with chronic A-fib, schizophrenia, admitted with dyspnea, a-fib with RVR. - Patient Problems (1) Atrial fibrillation with rapid ventricular response Current Visit: Yes Code(s): I48.91 - UNSPECIFIED ATRIAL FIBRILLATION Comment : Appreciate cardiology input, rate control still an issue. Continue Toprol XL at 100 mg BID. Patient should have outpatient follow-up with Dr. Sanchez in 4-6 weeks, as well as follow-up echocardiogram. Echocardiogram shows diffuse global hypokinesis of the LV, EF 30-35%, mild reduction of right global systolic function, and moderate MR and TR. Assessment of diastolic dysfunction non-diagnostic. (2) Dyspnea and respiratory abnormalities Code(s): R06.00 - DYSPNEA, UNSPECIFIED; R06.89 - OTHER ABNORMALITIES OF BREATHING Comment: May have element of viral bronchitis or COPD from chronic marijuana use and secondhand smoke exposure. Outpatient PFTs indicated. (3) Troponin level elevated Code(s): R74.8 - ABNORMAL LEVELS OF OTHER SERUM ENZYMES Comment: Likely demand ischemia, recommend outpatient stress test with PCP. (4) Obstructive sleep apnea Code(s): G47.33 - OBSTRUCTIVE SLEEP APNEA (ADULT) (PEDIATRIC) Comment: Continue CPAP use. Patient reports good adherence at home. ? effectiveness of current therapy. Overnight pulse oximetry with desaturation events; however, this was on BiPAP. Patient currently treated for THOMAS by [facility]; he wishes to switch to [facility] but will require a referral from his new PCP. (5) Diabetes mellitus Code(s): E11.9 - TYPE 2 DIABETES MELLITUS WITHOUT COMPLICATIONS Comment: HgbA1c 6.4 Reasonably controlled, BG 130s-170s Continue glipizide and metformin. (6) HLD (hyperlipidemia) Code(s): E78.5 - HYPERLIPIDEMIA, UNSPECIFIED Comment: Continue atorvastatin. (7) DVT prophylaxis Code(s): BXW4435 - Comment: Warfarin Dose reduced for elevated INR. Recheck INR in AM. Status and Disposition: Inpatient admission, anticipate LOS >2 days. Patient wants new PCP, no longer following at [place]. Dr. Kunz agreed to be new PCP, call [phone] to make appt prior to discharge.
[2016-07-08] MEDS: glipiZIDE TAB* 5 MG PO SCH (12:03)
[2016-07-08] MEDS ORDERED: Warfarin TAB(*) 2.5 MG PO ONE (17:00)
[2016-07-08] MEDS ORDERED: Warfarin TAB(*) 4 MG PO SCH ×2 (17:00)
[2016-07-08] MEDS: hydrALAZINE IV* 20 MG/ML VIAL IV SLOW PU PRN (17:30)
--- NOTE | 2016-07-08 17:46 | PN ---
Hospitalist Progress Note Patient with positive urine culture results today, showing staph haemolyticus. Patient started on ceftriaxone. UTI may be contributing to rate control issues. Continue treatment of UTI at this time; appreciate ID input tomorrow.
[2016-07-08] MEDS ORDERED: cefTRIAXone VIAL(*) 1,000 MG in NS 0.9% 50 ML* 50 ML IVPB SCH (18:00)
[2016-07-08] MEDS: OLANzapine TAB*ODT* 10 MG TAB PO SCH (21:25)
[2016-07-08] MEDS: traZODone TAB* 100 MG PO SCH (21:27)
[2016-07-08] MEDS: Atorvastatin* 20 MG TAB PO SCH (21:27)
[2016-07-08] MEDS: Metoprolol Succinate XL TAB* 100 MG PO SCH (21:27)
[2016-07-08] MEDS: Prazosin CAP* 1 MG PO SCH (21:28)
[2016-07-09 05:20] LABS: BUN/Creatinine Ratio 21.1 (8-20); EGFR African American 89.7 (>60); EGFR Non-African American 69.7 (>60); Potassium 3.5 mmol/L (3.5-5.0)
[2016-07-09] MEDS: Lisinopril TAB* 10 MG PO SCH (07:50)
[2016-07-09] MEDS: Metoprolol Succinate XL TAB* 100 MG PO SCH ×2 (07:50→21:02)
[2016-07-09] MEDS: Potassium Chlor TAB* 10 MEQ TAB.ER PO SCH (07:50)
[2016-07-09] MEDS: metFORMIN* 500 MG TAB PO SCH ×2 (07:50→15:47)
[2016-07-09] MEDS: FENOFIBRATE 48 MG PO SCH (07:51)
[2016-07-09] MEDS: Sertraline* 50 MG TAB PO SCH (07:51)
[2016-07-09] MEDS ORDERED: Diltiazem TAB* 30 MG PO SCH (12:00)
[2016-07-09] MEDS: glipiZIDE TAB* 5 MG PO SCH (12:56)
[2016-07-09] MEDS: Warfarin TAB(*) 4 MG PO SCH (15:46)
[2016-07-09] MEDS: Digoxin TAB* 0.25 MG PO SCH (15:48)
--- NOTE | 2016-07-09 16:52 | PN ---
Subjective Date of Service: 07/09/16 Interval History: This is a 56 yo male with a h/o DM, HLD, THOMAS, and unspecified short term memory loss who presented with c/o SOB. He had afib with RVR. He had no prior hx of afib. Patient has been anticoagulated with Coumadin, now therapeutic. Rate control has been attempted with Metoprolol. He still has a HR ~105-115 at rest and up to 120+ with activity. He was still feeling SOB this am, improved after a dose of cardizem which helped decrease his rate slightly. No sig LE edema. No CP. No c/o palpitations. Objective Active Medications: Acetaminophen (Tylenol Tab*) 650 mg PO Q4H PRN PRN Reason: FEVER/PAIN Atorvastatin Calcium (Lipitor*) 20 mg PO 2100 [facility] Last Admin: 07/08/16 21:27 Dose: 20 mg Digoxin (Lanoxin Tab*) 0.25 mg PO 1700 [facility] Last Admin: 07/09/16 15:48 Dose: 0.25 mg Fenofibrate (Tricor(Nf)) 48 mg PO DAILY [facility] Last Admin: 07/09/16 07:51 Dose: 48 mg Glipizide (Glucotrol Tab*) 5 mg PO DAILY@1200 [facility] Last Admin: 07/09/16 12:56 Dose: 5 mg Hydralazine HCl (Apresoline Iv*) 5 mg IV SLOW PU Q4H PRN PRN Reason: BLOOD PRESSURE Last Admin: 07/08/16 17:30 Dose: 5 mg Lisinopril (Prinivil Tab*) 40 mg PO DAILY [facility] Last Admin: 07/09/16 07:50 Dose: 40 mg Metformin HCl (Glucophage*) 500 mg PO BID WITH MEALS [facility] Last Admin: 07/09/16 15:47 Dose: 500 mg Metoprolol Succinate (Toprol Xl Tab*) 100 mg PO BID [facility] Last Admin: 07/09/16 07:50 Dose: 100 mg Metoprolol Tartrate (Lopressor Iv*) 5 mg IV Q6H PRN PRN Reason: heart rate Last Admin: 07/08/16 06:37 Dose: 5 mg Olanzapine (Zyprexa *Odt*) 30 mg PO BEDTIME [facility] Last Admin: 07/08/16 21:25 Dose: 30 mg Pharmacy Profile Note (Coumadin Daily Reminder*) 1 note FOLLOW UP 1700 [facility] Last Admin: 07/09/16 16:29 Dose: 1 note Potassium Chloride (Klor Con Er Tab*) 10 meq PO DAILY [facility] Last Admin: 07/09/16 07:50 Dose: 10 meq Prazosin HCl (Minipress Cap*) 2 mg PO BEDTIME [facility] Last Admin: 07/08/16 21:28 Dose: 2 mg Sertraline HCl (Zoloft*) 150 mg PO DAILY [facility] Last Admin: 07/09/16 07:51 Dose: 150 mg Trazodone HCl (Desyrel Tab*) 100 mg PO BEDTIME [facility] Last Admin: 07/08/16 21:27 Dose: 100 mg Warfarin Sodium (Coumadin Tab(*)) 4 mg PO DAILY@1700 [facility] PRN Reason: Protocol Last Admin: 07/09/16 15:46 Dose: 4 mg Vital Signs: Temp Pulse Resp BP Pulse Ox 98.1 F 88 18 151/109 98 07/09/16 15:53 07/09/16 15:53 07/09/16 15:53 07/09/16 15:53 07/09/16 15:53 Oxygen Devices in Use Now: Nasal Cannula Appearance: Well appearing middle aged male in NAD Neck: NL Appearance and Movements; NL JVP Respiratory: Symmetrical Chest Expansion and Respiratory Effort, Clear to Auscultation Cardiovascular: NL Sounds; No Murmurs; No JVD, - - irreg rhythm, slightly tachy Abdominal: NL Sounds; No Tenderness; No Distention Extremities: No Edema Skin: No Rash or Ulcers Neurological: Alert and Oriented x 3 Result Diagrams: 07/08/16 04:14 07/09/16 04:28 Additional Lab and Data: . Diagnostic Imaging: Echo - LVEF 30-35%, diffuse hypokinesis CXR - mild interstitial edema with cardiomegaly EKG Data: telemetry - afib, rate 100-120 bpm Assess/Plan/Problems-Billing Assessment: 56 year old with chronic A-fib, schizophrenia, admitted with dyspnea, a-fib with RVR. - Patient Problems (1) Atrial fibrillation with rapid ventricular response Comment: Appreciate cardiology input, rate control still an issue. Cont high dose metoprolol Will trial adding digoxin for additional rate control in the setting of HF Anticoagulated with Coumadin Patient should have outpatient follow-up with Dr. Sanchez in 4-6 weeks, as well as follow-up echocardiogram. (2) UTI (urinary tract infection) Comment: Urine growing staph haemolyticus ?prostatitis, PSA is 0.5, making this less likely Treat with ampicillin and can transition to Augmentin at discharge Check PVR to eval for retention (3) Acute systolic heart failure Comment: LVEF 30-35% with global hypokinesis May be related to tachyarrythmia Will require repeat echo in 4-6 weeks (4) Troponin level elevated Comment: Likely demand ischemia Recommend outpatient stress test (5) Diabetes mellitus Comment: HgbA1c 6.4 Reasonably controlled, BG 130s-170s Continue glipizide and metformin. (6) HLD (hyperlipidemia) Comment: Continue atorvastatin. (7) Obstructive sleep apnea Comment: Continue CPAP use. Patient reports good adherence at home. ? effectiveness of current therapy. Overnight pulse oximetry with desaturation events Recommend repeat sleep study as outpt Status and Disposition: Inpatient admission, anticipate LOS >2 days. Patient wants new PCP, no longer following at [place]. Dr. Kunz agreed to be new PCP, call [phone] to make appt prior to discharge. Possible discharge tomorrow
--- NOTE | 2016-07-09 17:18 | PN ---
Subjective Date of Service: 07/09/16 - CC: SOB Interval History: Breathing and edema have improved since admission. Not aware of palpitations/ racing. Medications Active Medications: Acetaminophen (Tylenol Tab*) 650 mg PO Q4H PRN PRN Reason: FEVER/PAIN Atorvastatin Calcium (Lipitor*) 20 mg PO 2100 [facility] Last Admin: 07/08/16 21:27 Dose: 20 mg Digoxin (Lanoxin Tab*) 0.25 mg PO 1700 [facility] Last Admin: 07/09/16 15:48 Dose: 0.25 mg Fenofibrate (Tricor(Nf)) 48 mg PO DAILY [facility] Last Admin: 07/09/16 07:51 Dose: 48 mg Glipizide (Glucotrol Tab*) 5 mg PO DAILY@1200 [facility] Last Admin: 07/09/16 12:56 Dose: 5 mg Hydralazine HCl (Apresoline Iv*) 5 mg IV SLOW PU Q4H PRN PRN Reason: BLOOD PRESSURE Last Admin: 07/08/16 17:30 Dose: 5 mg Lisinopril (Prinivil Tab*) 40 mg PO DAILY [facility] Last Admin: 07/09/16 07:50 Dose: 40 mg Metformin HCl (Glucophage*) 500 mg PO BID WITH MEALS [facility]CLUDES [facility] Last Admin: 07/09/16 15:47 Dose: 500 mg Metoprolol Succinate (Toprol Xl Tab*) 100 mg PO BID [facility] Last Admin: 07/09/16 07:50 Dose: 100 mg Metoprolol Tartrate (Lopressor Iv*) 5 mg IV Q6H PRN PRN Reason: heart rate Last Admin: 07/08/16 06:37 Dose: 5 mg Olanzapine (Zyprexa *Odt*) 30 mg PO BEDTIME [facility] Last Admin: 07/08/16 21:25 Dose: 30 mg Pharmacy Profile Note (Coumadin Daily Reminder*) 1 note FOLLOW UP 1700 [facility] Last Admin: 07/09/16 16:29 Dose: 1 note Potassium Chloride (Klor Con Er Tab*) 10 meq PO DAILY [facility] Last Admin: 07/09/16 07:50 Dose: 10 meq Prazosin HCl (Minipress Cap*) 2 mg PO BEDTIME [facility] Last Admin: 07/08/16 21:28 Dose: 2 mg Sertraline HCl (Zoloft*) 150 mg PO DAILY [facility] Last Admin: 07/09/16 07:51 Dose: 150 mg Trazodone HCl (Desyrel Tab*) 100 mg PO BEDTIME [facility] Last Admin: 07/08/16 21:27 Dose: 100 mg Warfarin Sodium (Coumadin Tab(*)) 4 mg PO DAILY@1700 [facility] PRN Reason: Protocol Last Admin: 07/09/16 15:46 Dose: 4 mg Objective Vital Signs: Temp Pulse Resp BP Pulse Ox 98.1 F 88 18 151/109 98 07/09/16 15:53 07/09/16 15:53 07/09/16 15:53 07/09/16 15:53 07/09/16 15:53 Oxygen Devices in Use Now: Nasal Cannula Appearance: obese and stocky middle aged gentleman, sitting at 70 degrees, appears comfortable. Eyes: PERRLA Ears/Nose/Mouth/Throat: Clear Oropharnyx, Mucous Membranes Moist Neck: NL Appearance and Movements; NL JVP, Trachea Midline, No Thyroid Enlargement, Masses - thick neck. Respiratory: Symmetrical Chest Expansion and Respiratory Effort - crackes in the bases, mild. Cardiovascular: - - S1S2 irregularly irregular and tachycardic, no murmers. Abdominal: - - rotund, non tender. Extremities: No Edema, No Clubbing, Cyanosis Skin: No Rash or Ulcers Laboratory Results: 07/08/16 04:14 07/09/16 04:28 INR (Anticoag Therapy) 2.33 (0.89-1.11) H 07/09/16 04:28 Total Bilirubin 1.20 mg/dL (0.2-1.0) H 07/05/16 06:30 AST 33 U/L (13-39) 07/05/16 06:30 ALT 65 U/L (7-52) H 07/05/16 06:30 Alkaline Phosphatase 73 U/L (34-104) 07/05/16 06:30 B-Natriuretic Peptide 530 pg/mL (-100) H 07/06/16 05:25 Total Protein 6.1 g/dL (6.4-8.9) L 07/05/16 06:30 Albumin 3.6 g/dL (3.2-5.2) 07/05/16 06:30 Globulin 2.5 g/dL (2-4) 07/05/16 06:30 Albumin/Globulin Ratio 1.4 (1-3) 07/05/16 06:30 TSH 1.77 mcIU/mL (0.34-5.60) 07/05/16 06:30 Diagnostic Imaging: Echo this admission: EF 30-35%. EKG Data: Monitor: afib, rates > 100 bpm. Assessment/Plan 56 yo admitted with SOB, found in afib, uncertain duration with RVR and a newly depressed EF. Improving with rate control and diuresis. Points of Discussion: Afib: Continue beta sharita and coumodin. Addition of digoxen noted, I doubt this will help much in this 56 yo. Consider short or long acting cardizem despite low ER, rate control may override negative effects. [facility]: [facility] guided CV, OK with discharge on meds and out patient f/u, arrangements. CM: May improve/normalize with rate control and/or alevism of NSR. Option of converting pure beta sharita to Coreg as BP remains quite high. Consider aldactone for low EF, CM, volume overload (and KCl 3.5). General: Pt at risk for THOMAS, this could trigger afib, out patient f/u for this recommended. Obesity/DM/weight can contribute to his cardiac health as well, education recommended in and/or outpatient. Elevated ALT noted, ? congestion vs other, recommend repeat sometime this month , in or out patient.
[2016-07-09] MEDS: Ampicillin ADVAN(*) 1 GM in NS 0.9% 50 ML* 50 ML IVPB SCH (18:03)
--- NOTE | 2016-07-09 20:26 | CONS ---
CONSULTATION REPORT: DATE OF CONSULT: 07/09/16 REQUESTING PROVIDER: Ama Askew NP CONSULTING SERVICE: Infectious Disease. REASON FOR CONSULT: Question urinary tract infection. IMPRESSION: 1. Admitted with atrial fibrillation with rapid ventricular response, infectious workup as underlying cause showed urinalysis with 3+ leukocyte esterase, no red cells, and no nitrites. There were squamous cells present. Urine culture with greater than 100,000 colonies of Staph haemolyticus, which is skin nain and usually not a bladder pathogen. He has no history of instrumentation of his urinary tract or prosthetic material present in the urinary tract. He has no urinary frequency or dysuria. He said last week he had a few days of frequency and difficulty emptying his bladder, difficulty initiating stream, and nocturia 4 to 5 times at night, but that has all since resolved. I do not think there is urinary tract infection. I think he could have benign prostatic hypertrophy. 2. Atrial fibrillation with rapid ventricular response. 3. Obstructive sleep apnea, on CPAP. 4. Type 2 diabetes. RECOMMENDATIONS: We will stop ceftriaxone. He is going to notify the nurse next time he urinates today and I have talked to them, they will do a bladder scan to check postvoid residual. If that is significantly elevated, we will reevaluate whether or not this could be an infection that could have triggered some prostate symptoms; however, those have all seemed to resolved this week, so I think it is less likely. HISTORY OF PRESENT ILLNESS: This is a 56-year-old man with atrial fibrillation and diabetes admitted with tachypnea and dyspnea at rest and on exertion. He was found to be on atrial fibrillation and rapid ventricular response, which apparently happens for him from time to time without any clear trigger. He does not have a history of urinary tract infection, urinary tract surgery, or instrumentation. Last week, he did note that he had urinary frequency without dysuria. He had some nocturia 4 to 5 times at night and difficulty emptying, initiating stream, and then some leakage of urine when he did attempt to urinate. That all resolved on its own and over the last few days, he has had none of those symptoms. He does sometimes feel it is hard to initiate a stream and that he thinks is his baseline. PAST MEDICAL HISTORY: 1. Obstructive sleep apnea, on CPAP. 2. Atrial fibrillation, anticoagulated. 3. Type 2 diabetes. 4. Hypertension. 5. Depression. MEDICATIONS: 1. Tylenol. 2. Lipitor. 3. Fenofibrate. 4. Lisinopril. 5. Metoprolol. 6. Olanzapine. 7. Prazosin. 8. Sertraline. 9. Warfarin. 10. Glipizide. 11. Metformin. 12. Trazodone. 13. Ceftriaxone. ALLERGIES: No known drug allergies. FAMILY HISTORY: No recurrent infections. SOCIAL HISTORY: He lives in [facility]. No travel. No sick contacts. Some of his care is at the [place]. He was in the [employer]. REVIEW OF SYSTEMS: All negative except as noted above. PHYSICAL EXAM: General: He is awake and oriented x3, in no distress. Vital Signs: Temperature is 36.4, heart rate 90, respiratory rate 16, blood pressure 150/100, and O2 saturation 95% on room air. HEENT: There is no conjunctival hemorrhage. Oropharynx without lesions. Neck: Neck is supple without nuchal rigidity. Lymph Nodes: There is no cervical, supraclavicular, inguinal, axillary, or epitrochlear lymphadenopathy. Lungs: Clear to auscultation bilaterally. Heart: Irregularly irregular and tachycardic without murmurs. Abdomen: Soft, nontender, and nondistended. There is no suprapubic tenderness or flank tenderness to palpation. Skin: There is no rash or splinter hemorrhages. Musculoskeletal: There is no spine tenderness to palpation or joint synovitis. DIAGNOSTIC STUDIES/LAB DATA: White blood cell count 10, hemoglobin 14, and platelets 166. Creatinine is 1. He had a PSA done today, which was 0.59. Please see impressions and recommendations as outlined above. Thanks for asking me to see Mr. Soto in consultation. [id number]/[facility] #: [id number] SANDRA
[2016-07-09] MEDS: hydrALAZINE IV* 20 MG/ML VIAL IV SLOW PU PRN (21:03)
[2016-07-09] MEDS: Prazosin CAP* 1 MG PO SCH (21:03)
[2016-07-09] MEDS: OLANzapine TAB*ODT* 10 MG TAB PO SCH (21:03)
[2016-07-09] MEDS: Atorvastatin* 20 MG TAB PO SCH (21:03)
[2016-07-09] MEDS: traZODone TAB* 100 MG PO SCH (21:03)
[2016-07-10] MEDS: Ampicillin ADVAN(*) 1 GM in NS 0.9% 50 ML* 50 ML IVPB SCH ×4 (00:20→17:57)
[2016-07-10] MEDS: Metoprolol Tartrate IV* 1 MG/ML 5 ML VIAL IV PRN (03:03)
[2016-07-10] MEDS ORDERED: Furosemide IV* 10 MG/ML 2 ML VIAL (20 MG) IV ONE (08:21)
[2016-07-10] MEDS: Sertraline* 50 MG TAB PO SCH (08:35)
[2016-07-10] MEDS: Lisinopril TAB* 10 MG PO SCH (08:36)
[2016-07-10] MEDS: FENOFIBRATE 48 MG PO SCH (08:36)
[2016-07-10] MEDS: Furosemide TAB* 20 MG PO SCH (08:36)
[2016-07-10] MEDS: Potassium Chlor TAB* 10 MEQ TAB.ER PO SCH (08:37)
[2016-07-10] MEDS: metFORMIN* 500 MG TAB PO SCH ×2 (08:37→16:53)
[2016-07-10] MEDS: Carvedilol TAB* 25 MG PO SCH ×2 (08:37→22:31)
[2016-07-10] MEDS: hydrALAZINE IV* 20 MG/ML VIAL IV SLOW PU PRN (08:38)
[2016-07-10] MEDS ORDERED: Digoxin TAB* 0.25 MG PO ONE (11:03)
--- NOTE | 2016-07-10 11:16 | PN ---
Subjective Date of Service: 07/10/16 Interval History: Patient reports some improvement in his dyspnea but still intermittently complaining of shortness of breath at rest. Perhaps this is during times of tachycardia? He denies CP. No abd pain, n/v. Objective Active Medications: Acetaminophen (Tylenol Tab*) 650 mg PO Q4H PRN PRN Reason: FEVER/PAIN Atorvastatin Calcium (Lipitor*) 20 mg PO 2100 [facility] Last Admin: 07/09/16 21:03 Dose: 20 mg Carvedilol (Coreg Tab*) 25 mg PO BID [facility] Last Admin: 07/10/16 08:37 Dose: 25 mg Digoxin (Lanoxin Tab*) 0.25 mg PO 1700 [facility] Last Admin: 07/09/16 15:48 Dose: 0.25 mg Fenofibrate (Tricor(Nf)) 48 mg PO DAILY [facility] Last Admin: 07/10/16 08:36 Dose: 48 mg Furosemide (Lasix Tab*) 20 mg PO DAILY [facility] Last Admin: 07/10/16 08:36 Dose: 20 mg Glipizide (Glucotrol Tab*) 5 mg PO DAILY@1200 [facility] Last Admin: 07/09/16 12:56 Dose: 5 mg Hydralazine HCl (Apresoline Iv*) 5 mg IV SLOW PU Q4H PRN PRN Reason: BLOOD PRESSURE Last Admin: 07/10/16 08:38 Dose: 5 mg Ampicillin Sodium 1 gm/ Sodium (Chloride) 50 mls @ 200 mls/hr IVPB Q6H [facility] Last Admin: 07/10/16 05:26 Dose: 200 mls/hr Lisinopril (Prinivil Tab*) 40 mg PO DAILY [facility] Last Admin: 07/10/16 08:36 Dose: 40 mg Metformin HCl (Glucophage*) 500 mg PO BID WITH MEALS [facility] Last Admin: 07/10/16 08:37 Dose: 500 mg Metoprolol Tartrate (Lopressor Iv*) 5 mg IV Q6H PRN PRN Reason: heart rate Last Admin: 07/10/16 03:03 Dose: 5 mg Olanzapine (Zyprexa *Odt*) 30 mg PO BEDTIME [facility] Last Admin: 07/09/16 21:03 Dose: 30 mg Pharmacy Profile Note (Coumadin Daily Reminder*) 1 note FOLLOW UP 1700 [facility] Last Admin: 07/09/16 16:29 Dose: 1 note Potassium Chloride (Klor Con Er Tab*) 10 meq PO DAILY [facility] Last Admin: 07/10/16 08:37 Dose: 10 meq Prazosin HCl (Minipress Cap*) 2 mg PO BEDTIME [facility] Last Admin: 07/09/16 21:03 Dose: 2 mg Sertraline HCl (Zoloft*) 150 mg PO DAILY [facility] Last Admin: 07/10/16 08:35 Dose: 150 mg Trazodone HCl (Desyrel Tab*) 100 mg PO BEDTIME [facility] Last Admin: 07/09/16 21:03 Dose: 100 mg Warfarin Sodium (Coumadin Tab(*)) 4 mg PO DAILY@1700 [facility] PRN Reason: Protocol Last Admin: 07/09/16 15:46 Dose: 4 mg Vital Signs: Temp Pulse Resp BP Pulse Ox 97.4 F 122 18 156/117 98 07/10/16 07:38 07/10/16 07:38 07/10/16 08:00 07/10/16 07:38 07/10/16 07:38 Oxygen Devices in Use Now: Nasal Cannula Appearance: Well appearing middle aged gentleman in NAD Neck: NL Appearance and Movements; NL JVP Respiratory: Symmetrical Chest Expansion and Respiratory Effort Cardiovascular: NL Sounds; No Murmurs; No JVD, - - irreg rate/rhythm Abdominal: NL Sounds; No Tenderness; No Distention Extremities: No Edema Skin: No Rash or Ulcers Neurological: Alert and Oriented x 3 Result Diagrams: 07/08/16 04:14 07/09/16 04:28 Additional Lab and Data: . Diagnostic Imaging: Echo - LVEF 30-35%, diffuse hypokinesis CXR - mild interstitial edema with cardiomegaly EKG Data: telemetry - afib, rate 100-120 bpm Assess/Plan/Problems-Billing Assessment: 56 year old with chronic A-fib, schizophrenia, admitted with dyspnea, a-fib with RVR. - Patient Problems (1) Atrial fibrillation with rapid ventricular response Comment: Appreciate cardiology input, rate control still an issue. Blood pressure is also poorly controlled Will switch from metoprolol to carvedilol and give additional dose of oral dig, check serum dig tomorrow Will also check Mag levels, repleting Mag may also help with rate control Cont dig Anticoagulated with Coumadin Patient should have outpatient follow-up with Dr. Sanchez in 4-6 weeks, as well as follow-up echocardiogram. (2) UTI (urinary tract infection) Comment: Urine growing staph haemolyticus ?prostatitis, PSA is 0.5, making this less likely Treat with ampicillin and can transition to Augmentin at discharge Check PVR to eval for retention (3) Acute systolic heart failure Comment: LVEF 30-35% with global hypokinesis May be related to tachyarrythmia Will require repeat echo in 4-6 weeks (4) Troponin level elevated Comment: Likely demand ischemia Recommend outpatient stress test (5) Diabetes mellitus Comment: HgbA1c 6.4 Reasonably controlled, BG 130s-170s Continue glipizide and metformin. (6) HLD (hyperlipidemia) Comment: Continue atorvastatin. (7) Obstructive sleep apnea Comment: Continue CPAP use. Patient reports good adherence at home. ? effectiveness of current therapy. Overnight pulse oximetry with desaturation events Recommend repeat sleep study as outpt Status and Disposition: Inpatient admission, anticipate LOS >2 days. Patient wants new PCP, no longer following at [place]. Dr. Kunz agreed to be new PCP, call [phone] to make appt prior to discharge. Possible discharge tomorrow
[2016-07-10 11:24] LABS: Magnesium 1.7 mg/dL (1.9-2.7)
[2016-07-10] MEDS ORDERED: Magnesium Sulfate 2 GM IV* 2 GM/50 ML BAG IVPB ONE (11:31)
[2016-07-10] MEDS: glipiZIDE TAB* 5 MG PO SCH (12:07)
[2016-07-10] MEDS: Digoxin TAB* 0.25 MG PO SCH (16:51)
[2016-07-10] MEDS: Warfarin TAB(*) 4 MG PO SCH (16:52)
[2016-07-10] MEDS: OLANzapine TAB*ODT* 10 MG TAB PO SCH (22:27)
[2016-07-10] MEDS: Prazosin CAP* 1 MG PO SCH (22:27)
[2016-07-10] MEDS: Atorvastatin* 20 MG TAB PO SCH (22:31)
[2016-07-10] MEDS: traZODone TAB* 100 MG PO SCH (22:31)
[2016-07-11] MEDS: Ampicillin ADVAN(*) 1 GM in NS 0.9% 50 ML* 50 ML IVPB SCH ×2 (01:34→05:43)
[2016-07-11 04:38] LABS: BUN/Creatinine Ratio 20.2 (8-20); Calcium 8.9 mg/dL (8.6-10.3); EGFR African American 94.7 (>60); EGFR Non-African American 73.6 (>60); Potassium 3.5 mmol/L (3.5-5.0)
[2016-07-11 04:49] LABS: Digoxin 0.6 ng/ml (0.8-2.0)
[2016-07-11] MEDS: Sertraline* 50 MG TAB PO SCH (10:18)
[2016-07-11] MEDS: metFORMIN* 500 MG TAB PO SCH (10:18)
[2016-07-11] MEDS: FENOFIBRATE 48 MG PO SCH (10:19)
[2016-07-11] MEDS: Potassium Chlor TAB* 10 MEQ TAB.ER PO SCH (10:19)
[2016-07-11] MEDS: Carvedilol TAB* 25 MG PO SCH (10:19)
[2016-07-11] MEDS: Furosemide TAB* 20 MG PO SCH (10:19)
[2016-07-11] MEDS: Lisinopril TAB* 10 MG PO SCH (10:20)
[2016-07-11 11:53] VITALS: BP 129/111
--- NOTE | 2016-07-12 01:16 | DS ---
DISCHARGE SUMMARY: DATE OF ADMISSION: 07/05/16 DATE OF DISCHARGE: 07/11/16 PRIMARY CARE PROVIDER: Dr. Spencer Kunz. CONSULTING PUFF IRON OPERATOR: Dr. Sanchez. DISCHARGING PROVIDER: JELANI Fisher SUPERVISING PHYSICIAN: Dr. Mauricio Oseguera.* (DICTATED BY JELANI FISHER) PRIMARY DISCHARGE DIAGNOSES: 1. Rapid atrial fibrillation. 2. Bacteriuria. 3. Acute systolic heart failure. 4. Demand ischemia. SECONDARY DISCHARGE DIAGNOSES: 1. [id number] diabetes with hemoglobin A1c of 6.4%. 2. Hyperlipidemia. 3. Obstructive sleep apnea requiring new titration study for CPAP. DISCHARGE MEDICATIONS: 1. Atorvastatin 20 mg p.o. daily. 2. Carvedilol 25 mg p.o. b.i.d. 3. Vitamin D3 2000 units p.o. daily. 4. Digoxin 0.25 mg p.o. daily. 5. Fenofibrate 48 mg p.o. daily. 6. Lasix 20 mg p.o. daily. 7. Lisinopril 40 mg p.o. daily. 8. Magnesium oxide 400 mg p.o. daily. 9. Metformin 500 mg p.o. b.i.d. 10. Zyprexa 30 mg p.o. at bedtime. 11. Potassium chloride 10 mEq p.o. daily. 12. Prazosin 2 mg p.o. at bedtime. 13. Sertraline 150 mg p.o. daily. 14. Trazodone 100 mg p.o. at bedtime. 15. Coumadin 4 mg p.o. daily. 16. Glipizide 5 mg with lunch. MEDICATION CHANGES: 1. Metoprolol discontinued. 2. Start carvedilol. 3. Start digoxin. 4. Start Lasix. 5. Start magnesium oxide. 6. Increase Coumadin to 4 mg daily. HOSPITAL IMAGIN. Chest x-ray, 07/05/16, shows cardiomegaly with mild interstitial congestion and possible pericardial effusion. 2. EKG shows atrial fibrillation with a rate of 120 beats per minute. 3. Transthoracic echocardiogram, 07/05/16, shows left ventricular fraction of 30% to 35% with pattern of global hypokinesis. Mildly reduced right ventricular function. Moderate mitral regurg appreciated. Moderate tricuspid regurg. No pulmonary hypertension noted. There is a very small pericardial effusion noted. 4. Overnight pulse oximetry. He has spent 25% of his overnight time while on CPAP less than 90%. HOSPITAL COURSE: This is a 56-year-old gentleman with history of atrial fibrillation, anticoagulated on Coumadin as well as obstructive sleep apnea, non - insulin dependent diabetes and hyperlipidemia who presented to the emergency department with complaints of shortness of breath. Initial EKG showed atrial fibrillation with a rate of approximately 120 beats per minute. His chest x- ray was consistent with a mild failure picture showing cardiomegaly and some pulmonary venous congestion. The patient was subsequently admitted to the hospital for rate control of his AFib and further treatment of presumed heart failure. Echo, transthoracic echocardiogram showed left ventricular ejection fraction of 30% to 35% with a pattern of global hypokinesis. There was no prior echocardiograms available for comparison but according to his daughter, who is a nurse, this is a new finding. Based on the pattern of global hypokinesis, it is thought to potentially be tachy-mediated. He did have mildly elevated troponin of 0.04 x2 at the time of admission. No complaints of chest pain and no ischemic changes noted on EKG. The patient's rate was incredibly difficult to control. He was titrated up on his metoprolol to 100 mg twice daily. Diltiazem was avoided due to his reduced ejection fraction. He remained greater than 100 beats per minute with complaints of shortness of breath. His metoprolol was subsequently discontinued and transitioned to high dose carvedilol and added digoxin, which reduced his rate to between 80 and 90 beats per minute at rest and was able to maintain about 110 to 115 beats per minute with activity. He was diuresed lightly with Lasix and the patient's complaints of shortness of breath resolved at the time of discharge. Also of note, the patient's urinalysis grew Staph haemolyticus. He did not appear to be acutely ill. Though that this might represent prostatitis. His PSA was normal. Infectious Disease specialist evaluated and felt that his urine may have been contaminated and did not recommend treatment for the Staph. He did receive a few doses of ceftriaxone and ampicillin during his hospitalization. He was afebrile and without leukocytosis or urinary complaints. DISPOSITION AND DISCHARGE PLAN: The patient is being discharged to home. Referral initiated to visiting nurse services. Multiple medication changes were made during his hospital stay noted above. The visiting nurse services as well as his daughter who is a nurse will help him sort these medications out. [facility] He will be established with Dr. Kunz for primary care services and has an appointment scheduled for next week. He also requires Cardiology followup with Dr. Sanchez in 4 to 6 weeks at which point, he is going to have a repeat echocardiogram. JELANI FISHER CC: Dr. Kunz: Dr. Sanchez* [id number]/[facility] #: [id number] SANDRA
== END 2016-07-11 12:33 | disposition home or self-care (01) | DRG 308 ==
LOC: ED 06:01 → MEDTELE 10:25
PROVIDERS: ADMIT Internal Medicine; ATTEND Hospitalist
PROC: 5A09457 Assistance with Respiratory Ventilation, 24-96 Consecutive Hours, Continuous Positive Airway Pressure (ICD-10-PCS; principal; 2016-07-05)
DX: I48.91 Unspecified atrial fibrillation (principal); I50.21 Acute systolic (congestive) heart failure; I24.8 Other forms of acute ischemic heart disease; F07.81 Postconcussional syndrome; I11.0 Hypertensive heart disease with heart failure; I36.1 Nonrheumatic tricuspid (valve) insufficiency; R82.71 Bacteriuria; E11.9 Type 2 diabetes mellitus without complications; E78.5 Hyperlipidemia, unspecified; G47.33 Obstructive sleep apnea (adult) (pediatric); I34.0 Nonrheumatic mitral (valve) insufficiency; F20.9 Schizophrenia, unspecified; R74.8 Abnormal levels of other serum enzymes; F12.10 Cannabis abuse, uncomplicated; Z77.29 Contact with and (suspected) exposure to other hazardous substances; N40.0 Benign prostatic hyperplasia without lower urinary tract symptoms; Z79.84 Long term (current) use of oral hypoglycemic drugs; Z79.899 Other long term (current) drug therapy; Z79.01 Long term (current) use of anticoagulants; Z82.49 Family history of ischemic heart disease and other diseases of the circulatory system
CPT/HCPCS: 36415; 71010; 80048; 80053; 80162; 81003; 81015; 83036; 83735; 83880; 84153; 84443; 84484; 85025; 85610; 87077; 87086; 87186; 93005; 93306; 94660; 94760; 94762; 99285; A9270-GY; G0103; J0360; J0696; J1940; J3475; J3490

== ENCOUNTER 2016-07-24 19:40 | Emergency (ER) | payer MEDICARE ==
--- NOTE | 2016-07-24 21:02 | RAD ---
INDICATION: Hypertension. COMPARISON: Comparison is made with prior chest x-ray studies from July 05, 2016 and a study from May 31, 2012. TECHNIQUE: Dual-energy PA and lateral views of the chest were obtained. FINDINGS: The heart is within normal limits in size. Mediastinal and hilar contours appear within normal limits. The lungs are hyperinflated and clear with flattening of the diaphragms suggestive of chronic obstructive pulmonary disease. No pleural effusion is seen. IMPRESSION: FINDINGS SUGGESTIVE OF COPD, NO EVIDENCE FOR ACUTE FINDING.
[2016-07-24 21:51] LABS: Hematocrit 45 % (42-52); Mean Corpuscular HGB Conc 34 g/dl (31-36); Mean Corpuscular Hemoglobin 27 pg (27-31); Mean Corpuscular Volume 80 fL (80-94); Mean Platelet Volume 8 um3 (7.4-10.4); Red Blood Count 5.64 10^6/ul (4.0-5.4); Red Cell Distribution Width 17 % (10.5-15); White Blood Count 10.4 10^3/ul (3.5-10.8)
--- NOTE | 2016-07-24 22:03 | RAD ---
INDICATION: Dizziness, hypertension. COMPARISON: Comparison is made with a prior CT of the brain from August 19, 2013. TECHNIQUE: Contiguous axial sections of the brain were obtained from the skull base to the vertex without contrast. FINDINGS: The ventricles, cisterns and sulci are enlarged consistent with diffuse atrophy. No significant focal abnormality or mass effect is seen. There is no evidence for hemorrhage. No significant focal osseous abnormality is seen. The visualized portion of the paranasal sinuses and mastoid air cells appear clear. IMPRESSION: 1. NO EVIDENCE FOR GROSS ACUTE INFARCT, MASS EFFECT OR HEMORRHAGE. 2. ATROPHY.
[2016-07-24 22:07] LABS: Albumin 4.1 g/dL (3.2-5.2); Calcium 9.5 mg/dL (8.6-10.3); EGFR African American 93.6 (>60); EGFR Non-African American 72.8 (>60); Potassium 3.4 mmol/L (3.5-5.0); Total Bilirubin 0.7 mg/dL (0.2-1.0); Total Protein 7.1 g/dL (6.4-8.9)
[2016-07-24 22:08] LABS: Troponin I 0.02 ng/mL (<0.04)
[2016-07-24 22:12] LABS: Urine Bilirubin Negative (Negative); Urine Glucose 1+(50 mg/dL) (Negative); Urine Nitrite Negative (Negative)
[2016-07-25] LABS: Digoxin 0.9 ng/ml (0.8-2.0)
[2016-07-25 00:07] VITALS: BP 147/110
--- NOTE | 2016-07-25 06:52 | ED ---
Mihir, DoctorJamia, scribed for Verona Gan MD on 07/24/16 at 2237 . Hypertension - HPI Summary HPI Summary: 56 year old male arrived to [facility] c/o lightheadedness and elevated blood pressure beginning at 15:00. At onset, his blood pressure was measured at home to be 197/120. He additionally reported SOB (not significantly different than baseline), dizziness, and fatigue. However, he reports that his lightheadedness has since resolved. He indicates that he has not taken Warfarin for 1 week, but notes that it is very unlikely that he missed his blood pressure medication. In addition to HTN, he has PMHx of DM and CHF. His blood pressure is usually around 150 (as reported by his daughter); he regularly sees Dr. Kunz (PCP). - History of Current Complaint Chief Complaint: EDHypertension Stated Complaint: HIGH BP Time Seen by Provider: 07/24/16 21:11 Hx Obtained From: Patient, Family/Clothes Marker - daughter Onset/Duration: Started Hours Ago - onset at 15:00, Resolved - lightheadedness resolved Associated Signs & Symptoms: Weakness, Dizziness - Risk Factors Cardiac Risk Factors: Hypertension, Diabetes, CHF, Family History - DM, HTN, CHF - Allergies/Home Medications Allergies/Adverse Reactions: Allergies Allergy/AdvReac Type Severity Reaction Status Date / Time No Known Allergies Allergy Verified 07/05/16 06:20 PMH/Surg Hx/FS Hx/Imm Hx Endocrine/Hematology History: Reports: Hx Anticoagulant Therapy - coumadin, Hx Diabetes Cardiovascular History: Reports: Hx Hypertension Denies: Other Cardiovascular Problems/Disorders Respiratory History: Denies: Other Respiratory Problems/Disorders Psychiatric History: Reports: Hx Schizophrenia - Immunization History Date of Tetanus Vaccine: unk Date of Influenza Vaccine: unk Infectious Disease History: No Infectious Disease History: Denies: Traveled Outside the [place] in Last 30 Days - Family History Known Family History: Positive: Cardiac Disease, Diabetes - Social History Alcohol Use: Weekly Alcohol Amount: 2xweek Substance Use Type: Reports: Marijuana Substance Use Comment - Amount & Last Used: daily Smoking Status (MU): Never Smoked Tobacco Review of Systems Positive: Fatigue. Negative: Fever Positive: Shortness Of Breath - no different than baseline Neurological: Other - dizziness/feeling lightheaded Positive: Weakness All Other Systems Reviewed And Are Negative: Yes Physical Exam Triage Information Reviewed: Yes Vital Signs On Initial Exam: Initial Vitals Temp Pulse Resp BP Pulse Ox 97 F 104 18 172/95 100 07/24/16 19:46 07/24/16 19:46 07/24/16 19:46 07/24/16 19:46 07/24/16 19:46 Vital Signs Reviewed: Yes Appearance: Positive: Well-Appearing, No Pain Distress Skin: Positive: Warm, Skin Color Reflects Adequate Perfusion, Dry Eyes: Positive: EOMI, NELDA ENT: Positive: Pharynx normal, TMs normal Neck: Positive: Supple, Nontender Respiratory/Lung Sounds: Positive: Clear to Auscultation, Breath Sounds Present. Negative: Rales, Rhonchi, Wheezes Cardiovascular: Positive: RRR. Negative: Murmur, Rub Abdomen Description: Positive: Nontender, Soft Bowel Sounds: Positive: Present Musculoskeletal: Positive: Strength/ROM Intact. Negative: Edema Left, Edema Right Neurological: Positive: Sensory/Motor Intact, Alert, Oriented to Person Place, Time, CN Intact II-III Psychiatric: Positive: Affect/Mood Appropriate - [place] Coma Scale Coma Scale Total: 15 Diagnostics - Vital Signs Vital Signs Temp Pulse Resp BP Pulse Ox 07/24/16 19:46 97 F 104 18 172/95 100 - Laboratory Lab Results: Lab Results 07/24/16 07/24/16 07/24/16 Range/Units 21:35 21:35 21:35 WBC 10.4 (3.5-10.8) 10^3/ul RBC 5.64 H (4.0-5.4) 10^6/ul Hgb 15.0 (14.0-18.0) g/dl Hct 45 (42-52) % MCV 80 (80-94) fL MCH 27 (27-31) pg MCHC 34 (31-36) g/dl RDW 17 H (10.5-15) % Plt Count 146 L (150-450) 10^3/ul MPV 8 (7.4-10.4) um3 Neut % (Auto) 71.7 (38-83) % Lymph % (Auto) 15.4 L (25-47) % [place] % (Auto) 8.2 (1-9) % Eos % (Auto) 4.3 (0-6) % Baso % (Auto) 0.4 (0-2) % Absolute Neuts (auto) 7.4 (1.5-7.7) 10^3/ul Absolute Lymphs (auto) 1.6 (1.0-4.8) 10^3/ul Absolute Monos (auto) 0.8 (0-0.8) 10^3/ul Absolute Eos (auto) 0.4 (0-0.6) 10^3/ul Absolute Basos (auto) 0 (0-0.2) 10^3/ul Absolute Nucleated RBC 0 10^3/ul Nucleated RBC % 0 INR (Anticoag Therapy) (0.89-1.11) Sodium 137 (133-145) mmol/L Potassium 3.4 L (3.5-5.0) mmol/L Chloride 102 (101-111) mmol/L Carbon Dioxide 28 (22-32) mmol/L Anion Gap 7 (2-11) mmol/L BUN 20 (6-24) mg/dL Creatinine 1.05 (0.67-1.17) mg/dL Est GFR ( Amer) 93.6 (>60) Est GFR (Non-Af Amer) 72.8 (>60) BUN/Creatinine Ratio 19.0 (8-20) Glucose 134 H (70-100) mg/dL Lactic Acid 1.0 (0.5-2.0) mmol/L Calcium 9.5 (8.6-10.3) mg/dL Total Bilirubin 0.70 (0.2-1.0) mg/dL AST 23 (13-39) U/L ALT 26 (7-52) U/L Alkaline Phosphatase 81 (34-104) U/L Troponin I 0.02 (<0.04) ng/mL Total Protein 7.1 (6.4-8.9) g/dL Albumin 4.1 (3.2-5.2) g/dL Globulin 3.0 (2-4) g/dL Albumin/Globulin Ratio 1.4 (1-3) Urine Color Urine Appearance Urine pH (5-9) Ur Specific [place] (1.010-1.030) Urine Protein (Negative) Urine Ketones (Negative) Urine Blood (Negative) Urine Nitrate (Negative) Urine Bilirubin (Negative) Urine Urobilinogen (Negative) Ur Leukocyte Esterase (Negative) Urine Glucose (Negative) 07/24/16 07/24/16 Range/Units 21:35 22:00 WBC (3.5-10.8) 10^3/ul RBC (4.0-5.4) 10^6/ul Hgb (14.0-18.0) g/dl Hct (42-52) % MCV (80-94) fL MCH (27-31) pg MCHC (31-36) g/dl RDW (10.5-15) % Plt Count (150-450) 10^3/ul MPV (7.4-10.4) um3 Neut % (Auto) (38-83) % Lymph % (Auto) (25-47) % [place] % (Auto) (1-9) % Eos % (Auto) (0-6) % Baso % (Auto) (0-2) % Absolute Neuts (auto) (1.5-7.7) 10^3/ul Absolute Lymphs (auto) (1.0-4.8) 10^3/ul Absolute Monos (auto) (0-0.8) 10^3/ul Absolute Eos (auto) (0-0.6) 10^3/ul Absolute Basos (auto) (0-0.2) 10^3/ul Absolute Nucleated RBC 10^3/ul Nucleated RBC % INR (Anticoag Therapy) 1.44 H (0.89-1.11) Sodium (133-145) mmol/L Potassium (3.5-5.0) mmol/L Chloride (101-111) mmol/L Carbon Dioxide (22-32) mmol/L Anion Gap (2-11) mmol/L BUN (6-24) mg/dL Creatinine (0.67-1.17) mg/dL Est GFR ( Amer) (>60) Est GFR (Non-Af Amer) (>60) BUN/Creatinine Ratio (8-20) Glucose (70-100) mg/dL Lactic Acid (0.5-2.0) mmol/L Calcium (8.6-10.3) mg/dL Total Bilirubin (0.2-1.0) mg/dL AST (13-39) U/L ALT (7-52) U/L Alkaline Phosphatase (34-104) U/L Troponin I (<0.04) ng/mL Total Protein (6.4-8.9) g/dL Albumin (3.2-5.2) g/dL Globulin (2-4) g/dL Albumin/Globulin Ratio (1-3) Urine Color Yellow Urine Appearance Clear Urine pH 6.0 (5-9) Ur Specific [place] 1.018 (1.010-1.030) Urine Protein Negative (Negative) Urine Ketones Negative (Negative) Urine Blood Negative (Negative) Urine Nitrate Negative (Negative) Urine Bilirubin Negative (Negative) Urine Urobilinogen Positive H (Negative) Ur Leukocyte Esterase Negative (Negative) Urine Glucose 1+(50 mg/dl) H (Negative) Result Diagrams: 07/24/16 21:35 07/24/16 21:35 Lab Statement: Any lab studies that have been ordered have been reviewed, and results considered in the medical decision making process. - Radiology Chest X-ray Radiology Interpretation Completed By: Radiologist - IMPRESSION: FINDINGS SUGGESTIVE OF COPD, NO EVIDENCE FOR ACUTE FINDING. - CT Brain CT CT Interpretation Completed By: Radiologist - IMPRESSION: 1. NO EVIDENCE FOR GROSS ACUTE INFARCT, MASS EFFECT OR HEMORRHAGE. 2. ATROPHY. - EKG 19:57 Cardiac Rate: NL EKG Rhythm: Atrial Fibrillation Ectopy: None EKG Interpretation: Anterior and Inferior Qs. EKG Comparison: No Significant Change - No change from EKG on 06/27/2016 22:34 Cardiac Rate: NL - 97 BPM EKG Rhythm: Atrial Fibrillation Ectopy: None EKG Comparison: No Significant Change - from EKG taken on 07/24/2016 at 19:57 Re-Evaluation - Re-Evaluation First Eval Re-Evaluation Time: 23:45 Change: Improved - Discussed plans to discharge patient, patient seemed agreeable. Hypertension Course/Dx - Course Course Of Treatment: pt with elevated bp that resolved with his night time dose of meds here. pt and family to contact pmd about meds and whether they need to be adjusted - Diagnoses Provider Diagnoses: Hypertension Discharge - Discharge Plan Condition: Stable Disposition: HOME Patient Education Materials: Hypertension (ED) Referrals: Spencer Kunz MD [Primary Care Provider] - The documentation as recorded by the Doctor vega Tahera accurately reflects the service I personally performed and the decisions made by me, Verona Gan MD.
== END 2016-07-25 00:12 | disposition home or self-care (01) ==
LOC: ED 19:40
DX: I10 Essential (primary) hypertension (principal); R42 Dizziness and giddiness; R53.1 Weakness; R53.83 Other fatigue; R06.02 Shortness of breath
CPT/HCPCS: 36415; 70450; 71020; 80053; 80162; 81003; 83605; 84484; 85025; 85610; 93005; 99282

== ENCOUNTER 2016-08-22 12:56 | Observation (INO) | payer MEDICARE ==
[2016-08-22 13:52] LABS: Hematocrit 41 % (42-52); Hemoglobin 13.8 g/dl (14.0-18.0); Mean Corpuscular HGB Conc 34 g/dl (31-36); Mean Corpuscular Hemoglobin 27 pg (27-31); Mean Corpuscular Volume 79 fL (80-94); Mean Platelet Volume 8 um3 (7.4-10.4); Red Blood Count 5.13 10^6/ul (4.0-5.4); Red Cell Distribution Width 17 % (10.5-15); White Blood Count 7.2 10^3/ul (3.5-10.8)
--- NOTE | 2016-08-22 14:06 | RAD ---
HISTORY: Syncope COMPARISONS: July 24, 2016 TECHNIQUE: Multiple contiguous axial CT scans were obtained of the head without intravenous contrast. FINDINGS: HEMORRHAGE/INFARCT: There is no hemorrhage or acute infarct. MASSES/SHIFT: There is no mass or shift. EXTRA-AXIAL SPACES: There are no extra-axial fluid collections. SULCI AND VENTRICLES: The sulci and ventricles are normal in size and position for the patient's stated age. CEREBRUM: There are no focal parenchymal abnormalities. BRAINSTEM: There are no focal parenchymal abnormalities. CEREBELLUM: There are no focal parenchymal abnormalities. VESSELS: The vessels are grossly normal. PARANASAL SINUSES: The paranasal sinuses are clear. ORBITS: The orbits are unremarkable. BONES AND SOFT TISSUE: No bone or soft tissue abnormalities are noted. OTHER: None IMPRESSION: NO ACUTE INTRACRANIAL PATHOLOGY.
--- NOTE | 2016-08-22 14:08 | RAD ---
Indication: Syncope. Single view of the chest including dual energy PA views demonstrates no mediastinal shift. This cardiomegaly. Lungs are clear. When compared to previous exam of July 24, 2016 no significant change is noted. IMPRESSION: No active cardiopulmonary disease is noted.
[2016-08-22 14:09] LABS: ALT 22 U/L (7-52); AST 21 U/L (13-39); Albumin 3.8 g/dL (3.2-5.2); Alkaline Phosphatase 72 U/L (34-104); Anion Gap 5 mmol/L (2-11); BUN/Creatinine Ratio 15.9 (8-20); Blood Urea Nitrogen 26 mg/dL (6-24); CO2 Carbon Dioxide 30 mmol/L (22-32); Calcium 9.2 mg/dL (8.6-10.3); Chloride 101 mmol/L (101-111); EGFR Non-African American 43.5 (>60); Globulin 2.6 g/dL (2-4); Glucose 105 mg/dL (70-100); Magnesium 1.8 mg/dL (1.9-2.7); Potassium 3.9 mmol/L (3.5-5.0); Sodium 136 mmol/L (133-145); Total Protein 6.4 g/dL (6.4-8.9)
[2016-08-22 14:48] LABS: Alcohol < 10 mg/dL (<10)
[2016-08-22 14:49] LABS: TSH (Thyroid Stimulating Horm) 0.54 mcIU/mL (0.34-5.60)
[2016-08-22 16:51] LABS: Urine Bilirubin Negative (Negative); Urine Glucose Negative (Negative); Urine Nitrite Negative (Negative)
[2016-08-22] MEDS ORDERED: NS 0.9% 1000 ML* 1,000 ML IV ONE (16:52)
[2016-08-22] MEDS ORDERED: Magnesium Oxide TAB* 400 MG PO ONE (16:59)
[2016-08-22 17:09] LABS: Benzodiazepine Urine Screen None Detected (None Detect)
[2016-08-22] MEDS ORDERED: Dextrose 50% Syringe 50 ML* 25 GM/50 ML SYRINGE IV PUSH PRN (17:46)
[2016-08-22] MEDS ORDERED: Magnesium Sulfate 2 GM IV* 2 GM/50 ML BAG IVPB ONE (17:50)
[2016-08-22] MEDS ORDERED: NS 0.9% 500 ML BAG* 500 ML IV SCH (19:00)
[2016-08-22] MEDS ORDERED: Prazosin CAP* 1 MG PO SCH (21:00)
[2016-08-22] MEDS ORDERED: Carvedilol TAB* 6.25 MG PO SCH (21:00)
[2016-08-22] MEDS ORDERED: OLANzapine TAB* 10 MG PO SCH (21:00)
[2016-08-22] MEDS ORDERED: traZODone TAB* 100 MG PO SCH (21:00)
[2016-08-22] MEDS ORDERED: Atorvastatin* 20 MG TAB PO SCH (21:00)
[2016-08-22] MEDS: Carvedilol TAB* 25 MG PO SCH (21:27)
--- NOTE | 2016-08-22 23:57 | HP ---
HOSPITAL MEDICINE HISTORY AND PHYSICAL: DATE OF ADMISSION: 08/22/16 PRIMARY CARE PHYSICIAN: Dr. Kunz. ATTENDING PHYSICIAN: Dr. Lev Issa* (dictation provided by Aliyah Hearn NP). CHIEF COMPLAINT: Syncope with ongoing lightheadedness. HISTORY OF PRESENT ILLNESS: Mr. Soto is a 56-year-old male who was most recently discharged from our hospital on 07/11/16 after being treated for rapid atrial fibrillation with acute systolic heart failure. In addition to this, the patient does have a history of type 2 diabetes which is non-insulin dependent, hyperlipidemia, and obstructive sleep apnea. Mr. Soto states that since going home on 07/21/16, he has had ongoing issues with lightheadedness. He uses the word dizziness to describe his symptoms, but he does deny any room spinning and only reports that he feels unsteady on his feet and lightheaded. He states that the sensation is worse when he goes from sitting to standing. Last night, he had a syncopal episode. He states he was walking into his kitchen to wash some dishes when he suddenly passed out. He caught himself on the way down on the cabinet and was able to lower himself down into the ground. He awoke and felt okay. In addition to this episode, the patient does report that prior to the last hospitalization a few months ago , he had a similar episode where he syncopized while out shopping with a friend. This episode had no prodromal symptoms and he was fine when he awoke after a few seconds. In addition to these symptoms, the patient states that he has had ongoing shortness of breath with exertion. His story is not quite clear but he does state that the shortness of breath with exertion was present prior to his last hospitalization and it is not clear if it is actually getting any worse. He denies any fevers, chills, cough, chest pain, nausea, or abdominal pain. In the emergency room, Mr. Soto had labs which show acute kidney injury which is mild with a BUN of 26 and creatinine of 1.64. His troponin is normal at 0.00. BNP is very low at 89. The remainder of his workup is essentially unremarkable. His EKG shows atrial fibrillation with controlled rate of 68. PAST MEDICAL HISTORY: 1. History of rapid atrial fibrillation with hospitalization in July 2016, on warfarin. 2. Type 2 diabetes, non-insulin dependent. 3. Systolic congestive heart failure, chronic, with EF of 30% to 35%. 4. Obstructive sleep apnea. 5. Hyperlipidemia. MEDICATIONS: 1. Carvedilol 25 mg p.o. b.i.d. 2. Cholecalciferol 2000 units p.o. daily. 3. Furosemide 20 mg p.o. daily (started at last hospitalization in July 2016). 4. Magnesium oxide 400 mg p.o. daily. 5. Metformin 500 mg p.o. b.i.d. 6. Glipizide 5 mg p.o. daily with meal. 7. Atorvastatin 20 mg p.o. daily. 8. Digoxin 0.25 mg p.o. daily. 9. Fenofibrate 48 mg p.o. daily. 10. Lisinopril 40 mg p.o. daily. 11. Olanzapine 30 mg p.o. bedtime. 12. Potassium chloride 10 mEq p.o. daily. 13. Prazosin 2 mg p.o. at bedtime. 14. Sertraline 150 mg p.o. daily. 15. Trazodone 100 mg p.o. at bedtime. 16. Warfarin 4 mg p.o. daily. ALLERGIES: No known drug allergies. FAMILY HISTORY: The patient reports that his mother had coronary artery disease as did his brother and sister. His father's history is not known. SOCIAL HISTORY: No report of alcohol or tobacco use. He smokes marijuana 4 times a day and has done so for the past 30 years. He actually does drink alcohol, but it is only very occasionally. He lives at [facility] and states that his daughter, Khalida, will be the healthcare proxy. REVIEW OF SYSTEMS: A 14-point review of systems was completed and all those not mentioned above were negative. PHYSICAL EXAMINATION GENERAL: Mr. Soto is sitting up in the bed. He is in no acute distress. He does state he feels lightheaded while seated. VITAL SIGNS: Temperature 97.6, heart rate 73, respiratory rate 16, O2 saturation 98% on room air, blood pressure 129/82. LUNGS: Clear to auscultation bilaterally with no accessory muscle use and good aeration. HEART: S1, S2. No murmur, rub, or gallop and regular. ABDOMEN: Soft, nontender with bowel sounds positive x4. EXTREMITIES: No cyanosis or edema. NEUROLOGIC: He is alert and oriented x3. He moves all extremities equally. There is no facial asymmetry or focal weakness. Extraocular movements are intact. SKIN: Intact. LABORATORY DATA AND DIAGNOSTIC STUDIES: WBC 7.2, hemoglobin 13.8, hematocrit 41, platelet count 131. INR 2.07. Sodium 136, potassium 3.9, chloride 101, serum bicarbonate 30, BUN 26, creatinine 1.64, glucose 105, lactic acid 1.2, magnesium 1.8. Troponin 0.00. BNP 89. Urine is negative for infection. Cannabinoid screen is positive. Serum alcohol level is less than 10. Chest x-ray shows no active cardiopulmonary disease. CT of brain is read as follows: "No acute intracranial pathology." EKG shows atrial fibrillation with a heart rate about 70. No evidence of ischemia. ASSESSMENT: Mr. Soto is a 56-year-old male with past medical history of atrial fibrillation with chronic systolic congestive heart failure and ejection fraction of 30% to 35% as well as non-insulin dependent diabetes and obstructive sleep apnea who presents to the hospital today with lightheadedness resulting in a syncopal episode. Our plans are for observation in the hospital for the followin. Syncope: The patient states he did have a syncopal episode prior to his last hospitalization, so it increases the likelihood the process is related to an arrhythmia, especially in the setting of his low ejection fraction. In addition to this, I am concerned that the patient has likely overdiuresed due to the elevated BUN and creatinine. He was started on Lasix on his last hospitalization back in July. I think that this hypovolemia could cause lightheadedness, syncope, and orthostatic hypotension which he is evidencing in the emergency room. Plans are to hold Lasix. I am going to give him a very small amount of fluid and then recheck his orthostatic vital signs in the morning. For concern of arrhythmia, plan to monitor on telemetry unit. The patient had a transthoracic echocardiogram during the last admission. 2. Acute kidney injury: Again, I plan to get a small amount of IV fluids. I think this is secondary to dehydration in the setting of Lasix use. Plan to hold Lasix and lisinopril for the morning until his hydration status is improved. 3. Orthostatic hypotension: I am going to stop his lisinopril for the moment. I will continue on his carvedilol. I am also holding his Lasix as noted above. 4. Atrial fibrillation: Continue digoxin and carvedilol. 5. DVT prophylaxis with warfarin. 6. Code status is full code. 7. Obstructive sleep apnea: The patient should have CPAP from the [facility]. 8. Diabetes: The patient will have blood glucoses q.a.c. with lispro sliding scale. TIME SPENT: Approximately 60 minutes were spent on the admission of this patient, more than half time spent with the patient at the bedside reviewing the events leading up to this hospitalization, performing the physical examination, and reviewing the plan of care. ALIYAH HEARN NP CC: Dr. Kunz* [id number]/CPS #: [id number] SANDRA
[2016-08-23 05:58] LABS: BUN/Creatinine Ratio 18.6 (8-20); Calcium 8.8 mg/dL (8.6-10.3); EGFR African American 73.8 (>60); EGFR Non-African American 57.4 (>60); Potassium 3.8 mmol/L (3.5-5.0)
[2016-08-23] MEDS: Carvedilol TAB* 25 MG PO SCH (07:47)
[2016-08-23] MEDS: Insulin LISPRO* 1 UNITS UNIT SUBCUT SCH ×2 (07:48→11:38)
--- NOTE | 2016-08-23 08:15 | ED ---
Aminta Ash Matthew, scribed for Armando Anaya MD on 08/22/16 at 1410 . Syncope/Near Syncope - HPI Summary HPI Summary: A 56 y/o male presents to the ED for a syncopal episode that occurred last night. The patient states that he was in the kitchen getting ready to clean his dishes when he had a syncopal episode. He states that he fell to the floor and loss consciousness for 30 seconds. During the episode, he was SOB. He denies chest pain and diaphoresis. Currently, associated symptoms include dizziness, lightheadedness, and SOB w/ excretion. His symptoms improving lying down. The patient also takes medication for schizophrenia. He has a Hx of CHF and low EF. - History Of Current Complaint Chief Complaint: EDSyncope Time Seen by Provider: 08/22/16 13:29 Hx Obtained From: Patient Onset/Duration: Sudden Onset Timing: Seconds Context: Unwitnessed, Loss Of Consciousness Activity At Onset: Other - Standing Alleviating Factor(s): Position Change - lying down Associated Signs And Symptoms: Dizzy, Lightheadedness, Shortness Of Breath - Allergies/Home Medications Allergies/Adverse Reactions: Allergies Allergy/AdvReac Type Severity Reaction Status Date / Time No Known Allergies Allergy Verified 07/05/16 06:20 PMH/Surg Hx/FS Hx/Imm Hx Endocrine/Hematology History: Reports: Hx Anticoagulant Therapy - coumadin, Hx Diabetes Cardiovascular History: Reports: Hx Hypertension Denies: Other Cardiovascular Problems/Disorders Respiratory History: Denies: Other Respiratory Problems/Disorders Psychiatric History: Reports: Hx Schizophrenia - Immunization History Date of Tetanus Vaccine: unk Date of Influenza Vaccine: unk Infectious Disease History: No Infectious Disease History: Denies: Traveled Outside the [place] in Last 30 Days - Family History Known Family History: Positive: Cardiac Disease, Diabetes - Social History Alcohol Use: Weekly Alcohol Amount: 2xweek Substance Use Type: Reports: Marijuana Substance Use Comment - Amount & Last Used: daily Smoking Status (MU): Never Smoked Tobacco Review of Systems Constitutional: Negative Eyes: Negative ENT: Negative Cardiovascular: Negative Positive: Shortness Of Breath - w/ excertion Gastrointestinal: Negative Genitourinary: Negative Musculoskeletal: Negative Skin: Negative Neurological: Other - dizziness, lightheadedness Psychological: Normal All Other Systems Reviewed And Are Negative: Yes Physical Exam - Summary Physical Exam Summary: VITAL SIGNS: Reviewed. GENERAL: Patient is an obese male who is lying comfortable in the stretcher. Patient is not in any acute respiratory distress. HEAD AND FACE: No signs of trauma. No ecchymosis, hematomas or skull depressions. No sinus tenderness. EYES: PERRLA, EOMI x 2, No injected conjunctiva, no nystagmus. No photophobia. EARS: Hearing grossly intact. Ear canals and tympanic membranes are within normal limits. MOUTH: Oropharynx within normal limits. NECK: Supple, trachea is midline, no adenopathy, no JVD, no carotid bruit, no c- spine tenderness, neck with full ROM. No meningeal signs, no Kernig's or brudzinskis signs. CHEST: Symmetric, no tenderness at palpation LUNGS: Clear to auscultation bilaterally. No wheezing or crackles. CVS: Irregular rate and rhythm, S1 and S2 present, no murmurs or gallops appreciated. ABDOMEN: Soft, non-tender. No signs of distention. No rebound no guarding, and no masses palpated. Bowel sounds are normal. EXTREMITIES: FROM in all major joints, no edema, no cyanosis or clubbing. NEURO: Alert and oriented x 3. No acute neurological deficits. Speech is normal and follows commands. SKIN: Dry and warm Triage Information Reviewed: Yes Vital Signs On Initial Exam: Initial Vitals Temp Pulse Resp BP Pulse Ox 97.8 F 79 20 134/76 100 08/22/16 12:59 08/22/16 12:59 08/22/16 12:59 08/22/16 12:59 08/22/16 12:59 Vital Signs Reviewed: Yes Diagnostics - Vital Signs Vital Signs Temp Pulse Resp BP Pulse Ox 08/22/16 13:30 68 153/82 98 08/22/16 13:20 67 96 08/22/16 13:18 151/76 08/22/16 13:03 97.6 F 88 20 134/76 100 08/22/16 12:59 97.8 F 79 20 134/76 100 - Laboratory Lab Results: Lab Results 08/22/16 08/22/16 08/22/16 Range/Units 13:35 13:35 13:35 WBC 7.2 (3.5-10.8) 10^3/ul RBC 5.13 (4.0-5.4) 10^6/ul Hgb 13.8 L (14.0-18.0) g/dl Hct 41 L (42-52) % MCV 79 L (80-94) fL MCH 27 (27-31) pg MCHC 34 (31-36) g/dl RDW 17 H (10.5-15) % Plt Count 131 L (150-450) 10^3/ul MPV 8 (7.4-10.4) um3 Neut % (Auto) 70.0 (38-83) % Lymph % (Auto) 17.3 L (25-47) % [place] % (Auto) 8.8 (1-9) % Eos % (Auto) 3.2 (0-6) % Baso % (Auto) 0.7 (0-2) % Absolute Neuts (auto) 5.0 (1.5-7.7) 10^3/ul Absolute Lymphs (auto) 1.2 (1.0-4.8) 10^3/ul Absolute Monos (auto) 0.6 (0-0.8) 10^3/ul Absolute Eos (auto) 0.2 (0-0.6) 10^3/ul Absolute Basos (auto) 0.1 (0-0.2) 10^3/ul Absolute Nucleated RBC 0 10^3/ul Nucleated RBC % 0 Sodium 136 (133-145) mmol/L Potassium 3.9 (3.5-5.0) mmol/L Chloride 101 (101-111) mmol/L Carbon Dioxide 30 (22-32) mmol/L Anion Gap 5 (2-11) mmol/L BUN 26 H (6-24) mg/dL Creatinine 1.64 H (0.67-1.17) mg/dL Est GFR ( Amer) 56.0 (>60) Est GFR (Non-Af Amer) 43.5 (>60) BUN/Creatinine Ratio 15.9 (8-20) Glucose 105 H (70-100) mg/dL Lactic Acid 1.2 (0.5-2.0) mmol/L Calcium 9.2 (8.6-10.3) mg/dL Magnesium 1.8 L (1.9-2.7) mg/dL Total Bilirubin 0.50 (0.2-1.0) mg/dL AST 21 (13-39) U/L ALT 22 (7-52) U/L Alkaline Phosphatase 72 (34-104) U/L Troponin I 0.00 (<0.04) ng/mL B-Natriuretic Peptide ( - 100) pg/mL Total Protein 6.4 (6.4-8.9) g/dL Albumin 3.8 (3.2-5.2) g/dL Globulin 2.6 (2-4) g/dL Albumin/Globulin Ratio 1.5 (1-3) TSH 0.54 (0.34-5.60) mcIU/mL Serum Alcohol < 10 (<10) mg/dL 08/22/16 Range/Units 13:35 WBC (3.5-10.8) 10^3/ul RBC (4.0-5.4) 10^6/ul Hgb (14.0-18.0) g/dl Hct (42-52) % MCV (80-94) fL MCH (27-31) pg MCHC (31-36) g/dl RDW (10.5-15) % Plt Count (150-450) 10^3/ul MPV (7.4-10.4) um3 Neut % (Auto) (38-83) % Lymph % (Auto) (25-47) % [place] % (Auto) (1-9) % Eos % (Auto) (0-6) % Baso % (Auto) (0-2) % Absolute Neuts (auto) (1.5-7.7) 10^3/ul Absolute Lymphs (auto) (1.0-4.8) 10^3/ul Absolute Monos (auto) (0-0.8) 10^3/ul Absolute Eos (auto) (0-0.6) 10^3/ul Absolute Basos (auto) (0-0.2) 10^3/ul Absolute Nucleated RBC 10^3/ul Nucleated RBC % Sodium (133-145) mmol/L Potassium (3.5-5.0) mmol/L Chloride (101-111) mmol/L Carbon Dioxide (22-32) mmol/L Anion Gap (2-11) mmol/L BUN (6-24) mg/dL Creatinine (0.67-1.17) mg/dL Est GFR ( Amer) (>60) Est GFR (Non-Af Amer) (>60) BUN/Creatinine Ratio (8-20) Glucose (70-100) mg/dL Lactic Acid (0.5-2.0) mmol/L Calcium (8.6-10.3) mg/dL Magnesium (1.9-2.7) mg/dL Total Bilirubin (0.2-1.0) mg/dL AST (13-39) U/L ALT (7-52) U/L Alkaline Phosphatase (34-104) U/L Troponin I (<0.04) ng/mL B-Natriuretic Peptide 89 ( - 100) pg/mL Total Protein (6.4-8.9) g/dL Albumin (3.2-5.2) g/dL Globulin (2-4) g/dL Albumin/Globulin Ratio (1-3) TSH (0.34-5.60) mcIU/mL Serum Alcohol (<10) mg/dL Result Diagrams: 08/22/16 13:35 08/23/16 05:26 Lab Statement: Any lab studies that have been ordered have been reviewed, and results considered in the medical decision making process. - Radiology CXR Xray Interpretation: No Acute Changes - IMPRESSION: No active cardiopulmonary disease is noted. Radiology Interpretation Completed By: Radiologist - CT Brain CT CT Interpretation: No Acute Changes - IMPRESSION: NO ACUTE INTRACRANIAL PATHOLOGY. CT Interpretation Completed By: Radiologist - EKG 13:09 Cardiac Rate: NL - 68 bpm EKG Rhythm: Atrial Fibrillation EKG Interpretation: No ST elevation; ST depression in I, II, V4-V6 EKG Comparison: No Significant Change - 07/24/16 Course/Dx Assessment/Plan: A 56 y/o male presents to the ED for a syncopal episode that occurred last night. The patient states that he was in the kitchen getting ready to clean his dishes when he had a syncopal episode. He states that he fell to the floor and loss consciousness for 30 seconds. During the episode, he was SOB. He denies chest pain and diaphoresis. Currently, associated symptoms include dizziness, lightheadedness, and SOB w/ excretion. His symptoms improving lying down. The patient also takes medication for schizophrenia. He has a Hx of CHF and low EF. Blood work WNL except mild anemia. The patient has renal failure with BUN, and Creatinine Glucose 105, Magnesium 1.8. Urinalysis negative UTI. Serum alcohol is negative. CXR shows no acute cardiopulmonary disease. Brain CT shows no acute intracranial pathology. In the ED course, we did orthostatics and it was positive. Therefore, the patient was started on gentle fluids, because the patient had CHF and a low ejection fraction. Therefore, I discussed the findings and test result who accepted the patient for admission. The patient is A&Ox3 and hemodynamically stable. - Diagnoses Differential Diagnosis/HQI/PQRI: Positive: Dysrhythmia, Seizure, Transient Ischemic Attack, Vasovagal Episode Provider Diagnoses: Orthostatic hypotension, Syncope - Physician Notifications Discussed Care Of Patient With: Dr. Issa (Hospitalist) at 16:55 -- Notified of paitent's history and will admit the patient into his services. Discharge - Discharge Plan Condition: Stable Disposition: ADMITTED TO [facility] The documentation as recorded by the Amitna vega Matthew accurately reflects the service I personally performed and the decisions made by me, Armando Anaya MD.
[2016-08-23] MEDS ORDERED: Potassium Chlor TAB* 10 MEQ TAB.ER PO SCH (09:00)
[2016-08-23] MEDS ORDERED: Fenofibrate(NF) 48 MG TAB PO SCH (09:00)
[2016-08-23] MEDS ORDERED: Sertraline* 50 MG TAB PO SCH (09:00)
[2016-08-23] MEDS ORDERED: Digoxin TAB* 0.25 MG PO SCH (09:00)
[2016-08-23] MEDS ORDERED: Lisinopril TAB* 10 MG PO SCH (09:00)
[2016-08-23 12:02] VITALS: BP 116/72
[2016-08-23] MEDS ORDERED: Prazosin CAP* 1 MG PO SCH (12:11)
[2016-08-23 12:37] LABS: Digoxin 0.7 ng/ml (0.8-2.0)
--- NOTE | 2016-08-23 12:41 | DCNOTE ---
Subjective Date of Service: 08/23/16 Interval History: "I feel much better today" but still a little dizzy when walks. He thinks his meds were changed by Dr. Sanchez or Dr. Kunz in the past 2 months but has no idea what the change was. Objective Active Medications: Atorvastatin Calcium (Lipitor*) 20 mg PO 2100 [facility] Last Admin: 08/22/16 21:26 Dose: 20 mg Carvedilol (Coreg Tab*) 25 mg PO BID [facility] Last Admin: 08/23/16 07:47 Dose: 25 mg Dextrose (D50w Syringe 50 Ml*) 12.5 gm IV PUSH .FOR FS < 60 - SS PRN PRN Reason: FS < 60 Digoxin (Lanoxin Tab*) 0.25 mg PO DAILY [facility] Last Admin: 08/23/16 07:46 Dose: 0.25 mg Fenofibrate (Tricor(Nf)) 48 mg PO DAILY [facility] Last Admin: 08/23/16 07:48 Dose: Not Given Insulin Human Lispro (Humalog*) 0 units SUBCUT AC [facility] PRN Reason: Protocol Last Admin: 08/23/16 11:38 Dose: 4 units Lisinopril (Prinivil Tab*) 10 mg PO DAILY [facility] Olanzapine (Zyprexa Tab*) 30 mg PO BEDTIME [facility] Last Admin: 08/22/16 21:26 Dose: 30 mg Pharmacy Profile Note (Coumadin Daily Reminder*) 1 note FOLLOW UP 1700 [facility] Prazosin HCl (Minipress Cap*) 1 mg PO BEDTIME [facility] Sertraline HCl (Zoloft*) 150 mg PO DAILY [facility] Last Admin: 08/23/16 07:47 Dose: 150 mg Trazodone HCl (Desyrel Tab*) 100 mg PO BEDTIME [facility] Last Admin: 08/22/16 21:27 Dose: 100 mg Warfarin Sodium (Coumadin Tab(*)) 4 mg PO 1700 [facility] PRN Reason: Protocol Vital Signs 08/22/16 08/22/16 08/22/16 17:30 18:00 18:30 Temperature Pulse Rate 65 76 Respiratory 16 Rate Blood Pressure 141/96 129/82 153/85 (mmHg) O2 Sat by Pulse 99 98 99 Oximetry 08/22/16 08/22/16 08/23/16 19:19 23:41 03:29 Temperature 97.8 F 97.5 F 96.2 F Pulse Rate 61 60 63 Respiratory 18 20 20 Rate Blood Pressure 180/101 129/76 145/76 (mmHg) O2 Sat by Pulse 95 97 100 Oximetry 08/23/16 08/23/16 08/23/16 06:43 07:21 07:46 Temperature 97.7 F Pulse Rate 69 69 Respiratory 20 20 Rate Blood Pressure 147/92 (mmHg) O2 Sat by Pulse 96 Oximetry 08/23/16 08/23/16 08/23/16 08:54 08:55 08:56 Temperature Pulse Rate 82 100 82 Respiratory 18 18 Rate Blood Pressure 132/80 97/64 132/80 (mmHg) O2 Sat by Pulse 97 94 Oximetry 08/23/16 08/23/16 08:57 11:26 Temperature 97.1 F Pulse Rate 100 59 Respiratory 18 Rate Blood Pressure 97/64 116/72 (mmHg) O2 Sat by Pulse 97 Oximetry Oxygen Devices in Use Now: None Appearance: Alert, sitting on the edge of the bed. In good spirits. Looks comfortable. Eyes: No Scleral Icterus Ears/Nose/Mouth/Throat: Clear Oropharnyx, Mucous Membranes Moist Neck: NL Appearance and Movements; NL JVP, No Thyroid Enlargement, Masses Respiratory: Symmetrical Chest Expansion and Respiratory Effort, Clear to Auscultation, Clear to Percussion Extremities: No Edema, No Clubbing, Cyanosis, - Skin: No Rash or Ulcers, No Nodules or Sclerosis, - Neurological: Alert and Oriented x 3, NL Sensation Result Diagrams: 08/22/16 13:35 08/23/16 05:26 Additional Lab and Data: Lab Results 08/22/16 08/22/16 08/22/16 Range/Units 13:35 13:35 13:35 WBC 7.2 (3.5-10.8) 10^3/ul RBC 5.13 (4.0-5.4) 10^6/ul Hgb 13.8 L (14.0-18.0) g/dl Hct 41 L (42-52) % MCV 79 L (80-94) fL MCH 27 (27-31) pg MCHC 34 (31-36) g/dl RDW 17 H (10.5-15) % Plt Count 131 L (150-450) 10^3/ul MPV 8 (7.4-10.4) um3 Neut % (Auto) 70.0 (38-83) % Lymph % (Auto) 17.3 L (25-47) % [place] % (Auto) 8.8 (1-9) % Eos % (Auto) 3.2 (0-6) % Baso % (Auto) 0.7 (0-2) % Absolute Neuts (auto) 5.0 (1.5-7.7) 10^3/ul Absolute Lymphs (auto) 1.2 (1.0-4.8) 10^3/ul Absolute Monos (auto) 0.6 (0-0.8) 10^3/ul Absolute Eos (auto) 0.2 (0-0.6) 10^3/ul Absolute Basos (auto) 0.1 (0-0.2) 10^3/ul Absolute Nucleated RBC 0 10^3/ul Nucleated RBC % 0 Sodium 136 (133-145) mmol/L Potassium 3.9 (3.5-5.0) mmol/L Chloride 101 (101-111) mmol/L Carbon Dioxide 30 (22-32) mmol/L Anion Gap 5 (2-11) mmol/L BUN 26 H (6-24) mg/dL Creatinine 1.64 H (0.67-1.17) mg/dL Est GFR ( Amer) 56.0 (>60) Est GFR (Non-Af Amer) 43.5 (>60) BUN/Creatinine Ratio 15.9 (8-20) Glucose 105 H (70-100) mg/dL Lactic Acid 1.2 (0.5-2.0) mmol/L Calcium 9.2 (8.6-10.3) mg/dL Magnesium 1.8 L (1.9-2.7) mg/dL Total Bilirubin 0.50 (0.2-1.0) mg/dL AST 21 (13-39) U/L ALT 22 (7-52) U/L Alkaline Phosphatase 72 (34-104) U/L Troponin I 0.00 (<0.04) ng/mL B-Natriuretic Peptide ( - 100) pg/mL Total Protein 6.4 (6.4-8.9) g/dL Albumin 3.8 (3.2-5.2) g/dL Globulin 2.6 (2-4) g/dL Albumin/Globulin Ratio 1.5 (1-3) TSH 0.54 (0.34-5.60) mcIU/mL Serum Alcohol < 10 (<10) mg/dL 08/22/16 Range/Units 13:35 WBC (3.5-10.8) 10^3/ul RBC (4.0-5.4) 10^6/ul Hgb (14.0-18.0) g/dl Hct (42-52) % MCV (80-94) fL MCH (27-31) pg MCHC (31-36) g/dl RDW (10.5-15) % Plt Count (150-450) 10^3/ul MPV (7.4-10.4) um3 Neut % (Auto) (38-83) % Lymph % (Auto) (25-47) % [place] % (Auto) (1-9) % Eos % (Auto) (0-6) % Baso % (Auto) (0-2) % Absolute Neuts (auto) (1.5-7.7) 10^3/ul Absolute Lymphs (auto) (1.0-4.8) 10^3/ul Absolute Monos (auto) (0-0.8) 10^3/ul Absolute Eos (auto) (0-0.6) 10^3/ul Absolute Basos (auto) (0-0.2) 10^3/ul Absolute Nucleated RBC 10^3/ul Nucleated RBC % Sodium (133-145) mmol/L Potassium (3.5-5.0) mmol/L Chloride (101-111) mmol/L Carbon Dioxide (22-32) mmol/L Anion Gap (2-11) mmol/L BUN (6-24) mg/dL Creatinine (0.67-1.17) mg/dL Est GFR ( Amer) (>60) Est GFR (Non-Af Amer) (>60) BUN/Creatinine Ratio (8-20) Glucose (70-100) mg/dL Lactic Acid (0.5-2.0) mmol/L Calcium (8.6-10.3) mg/dL Magnesium (1.9-2.7) mg/dL Total Bilirubin (0.2-1.0) mg/dL AST (13-39) U/L ALT (7-52) U/L Alkaline Phosphatase (34-104) U/L Troponin I (<0.04) ng/mL B-Natriuretic Peptide 89 ( - 100) pg/mL Total Protein (6.4-8.9) g/dL Albumin (3.2-5.2) g/dL Globulin (2-4) g/dL Albumin/Globulin Ratio (1-3) TSH (0.34-5.60) mcIU/mL Serum Alcohol (<10) mg/dL Assess/Plan/Problems-Billing Assessment: - Patient Problems (1) Orthostatic hypotension Current Visit: Yes Status: Acute Code(s): I95.1 - ORTHOSTATIC HYPOTENSION SNOMED Code(s): 71144727 Comment: Many of his meds may be contibuting. I will discharge him on decreased doses of prazosin, trazodone, lisinopril. Fup Daniel Arenas. (2) Atrial fibrillation with rapid ventricular response Current Visit: No Status: Acute Priority: High Code(s): I48.91 - UNSPECIFIED ATRIAL FIBRILLATION SNOMED Code(s): 439262126240495 Comment: Reduce digoxin to 0.125 mg daily. Add on level pending. Continue warfarin, carvediolol. (3) Diabetes mellitus Current Visit: No Status: Chronic Code(s): E11.9 - TYPE 2 DIABETES MELLITUS WITHOUT COMPLICATIONS SNOMED Code(s): 49146006 Comment: HgbA1c 6.4 07/05/16. Resume home DM meds. (4) Cardiomyopathy Current Visit: Yes Status: Acute Code(s): I42.9 - CARDIOMYOPATHY, UNSPECIFIED SNOMED Code(s): 30710032 Comment: LVEF 30-35% on echo 07/05/16. Continue lisinopril (lower dose), carvedilol, statin, fibrate. Status and Disposition: Discharge now. Fup Daniel Arenas.
[2016-08-23] MEDS ORDERED: Warfarin TAB(*) 4 MG PO SCH (17:00)
--- NOTE | 2016-08-24 01:15 | DS ---
CC: Dr. Kunz; Dr. Sanchez DISCHARGE SUMMARY: DATE OF ADMISSION: 08/22/16 DATE OF DISCHARGE: 08/23/16 HOSPITAL COURSE: This 56-year-old man presented with syncope and lightheadedness. The patient defin itely has orthostatic symptoms. He passed out walking into the kitchen though actually caught himse lf on the way down. The patient was really not too familiar with all those medications. I asked him if either Dr. Mehdi masterson or Dr. Sanchez had changed any of his medications in the last 2 months and he thought they had, but had no idea what medications or whether they increased or decreased his medications or added or subt racted the medications. The patient was monitored on the telemetry unit. He had no significant arrhythmias. He did have so me acute kidney injury possibly related to his diuretic. This improved in the hospital with intrave nous fluids. His creatinine was 1.64 on admission and 1.29 on the day of discharge. Clinically, he did very well. He said he felt much better. His lisinopril was withheld the second hospital day, but due to his cardiomyopathy, I am going to restart it at a lower dose. Digoxin level was added on . I note he had a digoxin level of 2.3. His digoxin level was 2.3 on August 07. The add-on level was 0.7, possibly he had missed the dose yesterday. In any event, I am not sure why the level is f luctuating so much or if it is benefitting him. I am going to change him to 0.125 mg daily. If he needed additional modification for rate control, I would think that beta sharita could be increased. I noted that many if not most of his medications could be contributing to his orthostatic hypotensio n. I am lowering the dose of prazosin. If he had trouble with blood pressure, this might be the fi rst to be discontinued completely. I also lowered his dose of trazodone from 100 mg to 50 mg daily. Further reductions in this and/or lowering his sertraline dose should be considered in the future. DISCHARGE DIAGNOSES: 1. Orthostatic hypotension. 2. Atrial fibrillation. 3. Diabetes mellitus. 4. Cardiomyopathy. DISCHARGE MEDICATIONS: 1. Lisinopril 10 mg daily. 2. Prazosin 1 mg h.s. 3. Trazodone 50 mg h.s. 4. Digoxin 0.125 mg daily. 5. Atorvastatin 20 mg daily at 9 p.m. 6. Vitamin D3, 2000 units daily. 7. Fenofibrate 48 mg daily. 8. Glipizide 5 mg daily. 9. Metformin 500 mg b.i.d. 10. Olanzapine 30 mg h.s. 11. Sertraline 150 mg daily. 12. Carvedilol 25 mg b.i.d. 13. Warfarin 4 mg daily. 14. Magnesium oxide 400 mg daily. [id number][place] [place] [id number]
[2016-08-24] MEDS ORDERED: Lisinopril TAB* 10 MG PO SCH (09:00)
== END 2016-08-23 13:03 | disposition home or self-care (01) ==
LOC: ED 12:56 → MEDTELE 17:04
PROVIDERS: ADMIT Internal Medicine; ATTEND Internal Medicine
DX: I95.1 Orthostatic hypotension (principal); N17.9 Acute kidney failure, unspecified; I48.91 Unspecified atrial fibrillation; E11.9 Type 2 diabetes mellitus without complications; I42.9 Cardiomyopathy, unspecified; I11.0 Hypertensive heart disease with heart failure; I50.22 Chronic systolic (congestive) heart failure; G47.33 Obstructive sleep apnea (adult) (pediatric); E78.5 Hyperlipidemia, unspecified; Z79.84 Long term (current) use of oral hypoglycemic drugs; Z79.01 Long term (current) use of anticoagulants; Z79.899 Other long term (current) drug therapy
CPT/HCPCS: 36415; 70450; 71010; 80048; 80053; 80162; 80307; 80320; 81003; 83605; 83735; 83880; 84443; 84484; 85025; 85610; 93005; 96361; 96365; 99285; A9270-GY; G0378; G0480

== ENCOUNTER 2017-06-30 16:57 | Emergency (ER) | payer MEDICARE ==
--- NOTE | 2017-06-30 19:10 | RAD ---
INDICATION: Shoulder breath. Pleural effusion COMPARISON: August 22, 2016 TECHNIQUE: PA and lateral dual-energy views were obtained. FINDINGS: Bones/Soft Tissues: There are no acute bony findings. Cardiomediastinal: The cardiomediastinal silhouette is normal. Lungs: There are no infiltrates. Pleura: There are no pleural effusions. Other: None IMPRESSION: NO ACTIVE DISEASE.
[2017-06-30] MEDS ORDERED: Metoprolol Tartrate TAB* 25 MG PO ONE ×2 (19:27→19:33)
[2017-06-30 19:30] LABS: ABS Basophils 0 10^3/ul (0-0.2); ABS Eosinophils 0.4 10^3/ul (0-0.6); ABS Lymphocytes 1.7 10^3/ul (1.0-4.8); ABS Monocytes 0.7 10^3/ul (0-0.8); ABS Neutrophils 6.4 10^3/ul (1.5-7.7); ABS Nucleated RBC 0 10^3/ul; Eosinophil % 4.2 % (0-6); Hematocrit 43 % (42-52); Hemoglobin 15.2 g/dl (14.0-18.0); Lymphocyte % 18.4 % (25-47); Mean Corpuscular HGB Conc 35 g/dl (31-36); Mean Corpuscular Hemoglobin 31 pg (27-31); Mean Corpuscular Volume 88 fL (80-94); Mean Platelet Volume 8 um3 (7.4-10.4); Nucleated Red Blood Cells % 0.1; Platelet Count 144 10^3/ul (150-450); Red Blood Count 4.89 10^6/ul (4.0-5.4); Red Cell Distribution Width 15 % (10.5-15); White Blood Count 9.3 10^3/ul (3.5-10.8)
[2017-06-30 19:39] LABS: INR 2.85 (0.77-1.02)
[2017-06-30 19:47] LABS: EGFR Non-African American 57.7 (>60)
[2017-06-30 20:06] VITALS: BP 128/78
--- NOTE | 2017-06-30 20:35 | ED ---
Edy Ash Nilda, scribed for Federico Jones MD on 06/30/17 at 1927 . HPI Cardiac - HPI Summary HPI Summary: This patient is a 57 year old M who states PCP called to recommend pt go to ED to drain lungs today due to possible fluid in lungs based on recent weight gain findings and history of CHF. The patient rates the pain 0/10 in severity. Symptoms aggravated and alleviated by nothing. Patient reports SWANN, but otherwise feels fine. He denies CP, SOB, and cough. PMHx includes CHF ( diagnosed last year), HTN, IDDM, and A-Fib. Medications include Warfarin. Patient states blood glucose has been steady at around 198-220. - History of Current Complaint Chief Complaint: EDGeneral Stated Complaint: FLUID AROUND LUNGS SENT BY PHYS Time Seen by Provider: 06/30/17 19:17 Hx Obtained From: Patient Onset/Duration: Started Hours Ago, Still Present Pain Intensity: 0 Pain Scale Used: 0-10 Numeric Chest Pain Radiates: No Aggravating Factor(s): Nothing Alleviating Factor(s): Nothing Associated Signs and Symptoms: Positive: Other: - SWANN; negative CP, SOB, and Cough - Additional Pertinent History Primary Care Physician: [id number] - Allergy/Home Medications Allergies/Adverse Reactions: Allergies Allergy/AdvReac Type Severity Reaction Status Date / Time No Known Allergies Allergy Verified 07/05/16 06:20 Home Medications: Home Medications Atorvastatin* [Lipitor*] 20 mg PO BEDTIME 06/30/17 [History Confirmed 06/30/17] Benztropine TAB* [Cogentin TAB*] 1 mg PO BID PRN 06/30/17 [History Confirmed ] Carvedilol TAB* [Coreg TAB*] 12.5 mg PO BID 06/30/17 [History Confirmed 06/30/17 ] Cholecalciferol (Vitamin D3) [Vitamin D3] 2,000 unit PO DAILY 06/30/17 [History Confirmed 06/30/17] Digoxin TAB* [Lanoxin TAB*] 0.125 mg PO DAILY 06/30/17 [History Confirmed ] Exenatide VIAL (NF) [Bydureon (NF)] 2 mg SUBCUT WEEKLY 06/30/17 [History Confirmed 06/30/17] Furosemide TAB* [Lasix TAB*] 40 mg PO QAM 06/30/17 [History Confirmed 06/30/17] Insulin Aspart PEN(NF) [Novolog Flexpen(NF)] 10 unit SUBCUT QPM 06/30/17 [ History Confirmed 06/30/17] Insulin GLARGINE(*) [Lantus(*)] 0 units SUBCUT DAILY 06/30/17 [History Confirmed 06/30/17] Magnesium Oxide TAB* [MagOx 400 TAB*] 400 mg PO DAILY 06/30/17 [History Confirmed 06/30/17] Metolazone TAB* [Zaroxolyn TAB*] 2.5 mg PO QAM 06/30/17 [History Confirmed 06/30] OLANZapine [Zyprexa] 40 mg PO QPM 06/30/17 [History Confirmed 06/30/17] Prazosin CAP* [Minipress CAP*] 4 mg PO BEDTIME 06/30/17 [History Confirmed 06/30] Sacubitril/Valsartan 49/51(NF) [Entresto 49/51(NF)] 1 tab PO BID 06/30/17 [ History Confirmed 06/30/17] Sertraline* [Zoloft*] 200 mg PO BEDTIME 06/30/17 [History Confirmed 06/30/17] Spironolactone TAB* [Aldactone TAB*] 25 mg PO DAILY 06/30/17 [History Confirmed 06/30/17] Warfarin TAB(*) [Coumadin TAB(*)] 6 mg PO DAILY 06/30/17 [History Confirmed ] metFORMIN* [Glucophage 500 MG TAB *] 500 mg PO BID 06/30/17 [History Confirmed 06/30/17] PMH/Surg Hx/FS Hx/Imm Hx Endocrine/Hematology History: Reports: Hx Anticoagulant Therapy - coumadin, Hx Diabetes Cardiovascular History: Reports: Hx Congestive Heart Failure, Hx Hypertension Denies: Other Cardiovascular Problems/Disorders Respiratory History: Reports: Hx Sleep Apnea - CPAP Denies: Other Respiratory Problems/Disorders GI History: Reports: Other GI Disorders - abdominal sx for GERD Sensory History: Denies: Hx Contacts or Glasses, Hx Hearing Aid Opthamlomology History: Denies: Hx Contacts or Glasses Psychiatric History: Reports: Hx Schizophrenia - Immunization History Date of Tetanus Vaccine: unk Date of Influenza Vaccine: 02/2017 Immunizations Up to Date: Yes Infectious Disease History: No Infectious Disease History: Denies: Traveled Outside the [place] in Last 30 Days - Family History Known Family History: Positive: Cardiac Disease, Diabetes - Social History Alcohol Use: Weekly Alcohol Amount: 2xweek Substance Use Type: Reports: None Substance Use Comment - Amount & Last Used: daily Smoking Status (MU): Never Smoked Tobacco Review of Systems Negative: Chest Pain Positive: Other - SWANN. Negative: Shortness Of Breath, Cough Positive: Other - weight gain All Other Systems Reviewed And Are Negative: Yes Physical Exam - Summary Physical Exam Summary: Appearance: Well appearing, no pain distress Skin: warm, dry, reflects adequate perfusion Head/face: normal Eyes: EOMI, NELDA ENT: normal Neck: supple, non-tender Respiratory: CTA, breath sounds present Cardiovascular: Irregularly irregular heartbeat in the 80s and 90s Abdomen: non-tender, soft Bowel sounds: present Musculoskeletal: normal, strength/ROM intact, no peripheral edema Neuro: normal, sensory motor intact, A&Ox3 Triage Information Reviewed: Yes Vital Signs On Initial Exam: Initial Vitals Temp Pulse Resp BP Pulse Ox 97.2 F 114 20 139/78 97 06/30/17 17:00 06/30/17 17:00 06/30/17 17:00 06/30/17 17:00 06/30/17 17:00 Vital Signs Reviewed: Yes Diagnostics - Vital Signs Vital Signs Temp Pulse Resp BP Pulse Ox 06/30/17 17:00 97.2 F 114 20 139/78 97 - Laboratory Lab Results: Lab Results 06/30/17 06/30/17 06/30/17 Range/Units 19:15 19:15 19:15 WBC 9.3 (3.5-10.8) 10^3/ul RBC 4.89 (4.0-5.4) 10^6/ul Hgb 15.2 (14.0-18.0) g/dl Hct 43 (42-52) % MCV 88 (80-94) fL MCH 31 (27-31) pg MCHC 35 (31-36) g/dl RDW 15 (10.5-15) % Plt Count 144 L (150-450) 10^3/ul MPV 8 (7.4-10.4) um3 Neut % (Auto) 69.0 (38-83) % Lymph % (Auto) 18.4 L (25-47) % [place] % (Auto) 7.9 (1-9) % Eos % (Auto) 4.2 (0-6) % Baso % (Auto) 0.5 (0-2) % Absolute Neuts (auto) 6.4 (1.5-7.7) 10^3/ul Absolute Lymphs (auto) 1.7 (1.0-4.8) 10^3/ul Absolute Monos (auto) 0.7 (0-0.8) 10^3/ul Absolute Eos (auto) 0.4 (0-0.6) 10^3/ul Absolute Basos (auto) 0 (0-0.2) 10^3/ul Absolute Nucleated RBC 0 10^3/ul Nucleated RBC % 0.1 INR (Anticoag Therapy) 2.85 H (0.77-1.02) APTT 50.5 H (26.0-36.3) seconds Sodium 136 (133-145) mmol/L Potassium 2.8 L (3.5-5.0) mmol/L Chloride 94 L (101-111) mmol/L Carbon Dioxide 32 (22-32) mmol/L Anion Gap 10 (2-11) mmol/L BUN 28 H (6-24) mg/dL Creatinine 1.28 H (0.67-1.17) mg/dL Est GFR ( Amer) 74.2 (>60) Est GFR (Non-Af Amer) 57.7 (>60) BUN/Creatinine Ratio 21.9 H (8-20) Glucose 213 H (70-100) mg/dL Calcium 10.2 (8.6-10.3) mg/dL Total Bilirubin 0.70 (0.2-1.0) mg/dL AST 21 (13-39) U/L ALT 28 (7-52) U/L Alkaline Phosphatase 97 (34-104) U/L Total Creatine Kinase 160 (10-223) U/L CK-MB (CK-2) 2.1 (0.6-6.3) ng/mL Troponin I 0.00 (<0.04) ng/mL C-Reactive Protein 6.42 H (< 5.00) mg/L B-Natriuretic Peptide ( - 100) pg/mL Total Protein 7.3 (6.4-8.9) g/dL Albumin 4.4 (3.2-5.2) g/dL Globulin 2.9 (2-4) g/dL Albumin/Globulin Ratio 1.5 (1-3) 02/20/18 Range/Units 19:15 WBC (3.5-10.8) 10^3/ul RBC (4.0-5.4) 10^6/ul Hgb (14.0-18.0) g/dl Hct (42-52) % MCV (80-94) fL MCH (27-31) pg MCHC (31-36) g/dl RDW (10.5-15) % Plt Count (150-450) 10^3/ul MPV (7.4-10.4) um3 Neut % (Auto) (38-83) % Lymph % (Auto) (25-47) % [place] % (Auto) (1-9) % Eos % (Auto) (0-6) % Baso % (Auto) (0-2) % Absolute Neuts (auto) (1.5-7.7) 10^3/ul Absolute Lymphs (auto) (1.0-4.8) 10^3/ul Absolute Monos (auto) (0-0.8) 10^3/ul Absolute Eos (auto) (0-0.6) 10^3/ul Absolute Basos (auto) (0-0.2) 10^3/ul Absolute Nucleated RBC 10^3/ul Nucleated RBC % INR (Anticoag Therapy) (0.77-1.02) APTT (26.0-36.3) seconds Sodium (133-145) mmol/L Potassium (3.5-5.0) mmol/L Chloride (101-111) mmol/L Carbon Dioxide (22-32) mmol/L Anion Gap (2-11) mmol/L BUN (6-24) mg/dL Creatinine (0.67-1.17) mg/dL Est GFR ( Amer) (>60) Est GFR (Non-Af Amer) (>60) BUN/Creatinine Ratio (8-20) Glucose (70-100) mg/dL Calcium (8.6-10.3) mg/dL Total Bilirubin (0.2-1.0) mg/dL AST (13-39) U/L ALT (7-52) U/L Alkaline Phosphatase (34-104) U/L Total Creatine Kinase (10-223) U/L CK-MB (CK-2) (0.6-6.3) ng/mL Troponin I (<0.04) ng/mL C-Reactive Protein (< 5.00) mg/L B-Natriuretic Peptide 16 ( - 100) pg/mL Total Protein (6.4-8.9) g/dL Albumin (3.2-5.2) g/dL Globulin (2-4) g/dL Albumin/Globulin Ratio (1-3) Result Diagrams: 06/30/17 19:15 06/30/17 19:15 Lab Statement: Any lab studies that have been ordered have been reviewed, and results considered in the medical decision making process. - Radiology CXR Radiology Interpretation Completed By: Radiologist - CXR, per radiologist, reveals NAD. Dr. Jones has reviewed this radiology report. - EKG 1918 Cardiac Rate: Other Rate EKG Rhythm: Atrial Fibrillation - [address] Segment: Non-Specific EKG Interpretation: incomplete RBBB Disposition - Course Assessment/Plan: This patient is a 57 year old M who states PCP called to recommend pt go to ED to drain lungs today due to possible fluid in lungs based on recent weight gain findings and history of CHF. The patient rates the pain 0/10 in severity. Symptoms aggravated and alleviated by nothing. Patient reports SWANN, but otherwise feels fine. He denies CP, SOB, and cough. PMHx includes CHF (diagnosed last year), HTN, IDDM, and A-Fib. Medications include Warfarin. Patient states blood glucose has been steady at around 198-220. EKG reveals A-fib 81 bpm, incomplete RBBB, nonspecific ST changes. CXR, per radiologist, reveals NAD. Dr. Jones has reviewed this radiology report. Pt is fully asymptomatic. He has no complaint and no LE edema and nl CXR. His K+ is low, but this was resulted after pt discharged...likely from diuresis. Will Rx for KCl and call and inform patient. - Diagnoses Provider Diagnoses: Weight gain, Hypokalemia, excessive renal losses Discharge - Discharge Plan Condition: Good Disposition: HOME Prescriptions: Potassium Chloride 20 meq PO BID #20 [email or web address] Patient Education Materials: Weight Management (ED) Referrals: Spencer Kunz MD [Primary Care Provider] - Additional Instructions: Call Dr Kunz in the morning for follow up. Your Heart Rate is controlled and your xray is negative. There is no fluid on your legs or lungs. Return if worse , new symptoms or other concerns. The documentation as recorded by the Edy vega Nilda accurately reflects the service I personally performed and the decisions made by , Federico Jones MD.
== END 2017-06-30 20:05 | disposition home or self-care (01) ==
LOC: ED 16:57
DX: R63.5 Abnormal weight gain (principal); E87.6 Hypokalemia; I50.9 Heart failure, unspecified; Z79.01 Long term (current) use of anticoagulants; F20.9 Schizophrenia, unspecified; I10 Essential (primary) hypertension; I45.10 Unspecified right bundle-branch block; E11.9 Type 2 diabetes mellitus without complications; Z79.4 Long term (current) use of insulin; I48.91 Unspecified atrial fibrillation; Z79.84 Long term (current) use of oral hypoglycemic drugs
CPT/HCPCS: 36415; 71046; 80053; 82550; 82553; 83880; 84484; 85025; 85610; 85730; 86140; 99282

== ENCOUNTER 2023-11-25 07:58 | Observation (INO) ==
[2023-11-25] MEDS ORDERED: fentaNYL 250 mcg/5 ml 50 MCG/ML 5 ml VIAL (250 MCG) ONE ×2 (08:10→10:16)
[2023-11-25] MEDS ORDERED: Dexamethasone IV 4 MG/ML VIAL 1 ml VIAL ONE (08:10)
[2023-11-25] MEDS ORDERED: Rocuronium 50 mg VIAL 10 mg/ml 5 ml VIAL (50 mg) ONE ×2 (08:10→12:02)
[2023-11-25] MEDS ORDERED: Midazolam 2 mg/2 ml VIAL 1 mg/ml 2 ml VIAL (2 mg) ONE ×2 (08:10→10:04)
[2023-11-25] MEDS ORDERED: Ondansetron 4 mg VIAL 2 MG/ML 2 ml VIAL ONE (08:10)
[2023-11-25] MEDS ORDERED: Propofol 10 MG/ML 20 ML BTL ONE (08:10)
[2023-11-25] MEDS ORDERED: Lidocaine 2% PF 5 ML VIAL ONE (08:10)
[2023-11-25] MEDS ORDERED: ceFAZolin 2 GM PREMIX 2 GM/50 ML BAG ONE (08:20)
[2023-11-25] MEDS: Buffered Lidocaine 1% SYRIN 1 ml INTRADERM ONE (08:58)
[2023-11-25] MEDS: Lactated Ringers 1000 ml BAG 1,000 ML IV SCH ×2 (08:58→21:11)
[2023-11-25] MEDS ORDERED: Ondansetron 4 mg VIAL 2 MG/ML 2 ml VIAL IV PRN (09:01)
[2023-11-25] MEDS ORDERED: Naloxone 0.4 mg VIAL 0.4 mg/ml 1 ml VIAL IV PRN (09:01)
[2023-11-25] MEDS ORDERED: Bupivacaine 0.25% EPI 200,000 30 ML SDV ONE (09:11)
[2023-11-25] MEDS ORDERED: Albuterol HFA INHALER 8 gm MDI INH ONE (09:35)
[2023-11-25] MEDS ORDERED: Metoprolol Tartrate 5 mg VIAL 5 ml VIAL (1 mg/ml) ONE ×3 (10:04→13:51)
[2023-11-25] MEDS ORDERED: HYDROmorphone 0.5 MG/0.5 ML SYRINGE ONE ×2 (12:03→12:44)
[2023-11-25] MEDS ORDERED: .Amiodarone 24HR ONLY IV Protocol Order Note IV ONE (14:32)
[2023-11-25] MEDS: Amiodarone 150 mg IVPREMIX 150 MG/100 ML BAG IV ONE (15:01)
[2023-11-25] MEDS: Amiodarone 360 MG IVPREMIX 360 MG/200 ML BAG IV SCH (15:14)
[2023-11-25] MEDS ORDERED: fentaNYL 100 mcg/2 ml 50 MCG/ML VIAL ONE (15:27)
[2023-11-25] MEDS: fentaNYL 100 mcg/2 ml 50 MCG/ML VIAL IV PRN (15:32)
[2023-11-25] MEDS ORDERED: Dextrose 50% Syringe 50 ml 25 GM/50 ML SYRINGE IV PUSH PRN (16:55)
[2023-11-25] MEDS: Scopolamine 1 mg/72hr PATCH TRANSDERM ONE (18:00)
[2023-11-25] MEDS ORDERED: Amiodarone 360 MG IVPREMIX 360 MG/200 ML BAG IV SCH (20:45)
[2023-11-25] MEDS ORDERED: Metoprolol Tartrate 5 mg VIAL 5 ml VIAL (1 mg/ml) IV PRN (21:49)
[2023-11-25 22:21] LABS: Hematocrit 50.3 % (38-53); Hemoglobin 17.1 g/dL (13.2-16.3); Mean Corpuscular Hemoglobin 30.3 pg (27-33); Mean Corpuscular Volume 89.2 fL (80-97); Mean Platelet Volume 7.6 fL (7.5-11.2); Platelet Count 117 10^3/uL (150-450); Red Blood Count 5.65 10^6/uL (4.06-5.63); Red Cell Distribution Width 14.8 % (12-17); White Blood Count 10.8 10^3/uL (3.6-10.2)
[2023-11-25] MEDS: NF: ICOSAPENT ETHYL 1 GM CAPSULE (NF) PO SCH (22:42)
[2023-11-25 23:16] LABS: Calcium 9.2 mg/dL (8.6-10.3); Creatinine, Serum 1.47 mg/dL (0.67-1.17); Magnesium 1.8 mg/dL (1.9-2.7); Phosphorus 3.1 mg/dL (2.5-5.0); Potassium 4.4 mmol/L (3.5-5.0); eGFR CKD-EPI 52.9 (>60)
[2023-11-26 00:44] LABS: ABS Lymphocytes 0.5 10^3/uL (1.0-4.8); ABS Monocytes 0.5 10^3/uL (0.0-1.1); ABS Neutrophils 9.8 10^3/uL (1.5-7.6); ABS Nucleated RBC 0.01 10^3/ul; Lymphocyte % 4.7 %; Nucleated Red Blood Cells % 0.1 %/100WBC (0.0-0.8)
[2023-11-26] MEDS ORDERED: Metoprolol Tartrate 5 mg VIAL 5 ml VIAL (1 mg/ml) IV PRN (01:15)
[2023-11-26] MEDS: Magnesium Sulfate IV 1GM/100ML 1 GM/100 ML BAG IV ONE (02:08)
[2023-11-26 06:02] LABS: ABS Lymphocytes 0.7 10^3/uL (1.0-4.8); ABS Monocytes 0.8 10^3/uL (0.0-1.1); ABS Neutrophils 11.2 10^3/uL (1.5-7.6); ABS Nucleated RBC 0.02 10^3/ul; Eosinophil % 0.1 %; Hematocrit 49.4 % (38-53); Lymphocyte % 5.8 %; Mean Corpuscular Hemoglobin 30.4 pg (27-33); Mean Corpuscular Hgb Conc 34.4 g/dL (31-36); Mean Corpuscular Volume 88.4 fL (80-97); Mean Platelet Volume 7.7 fL (7.5-11.2); Nucleated Red Blood Cells % 0.1 %/100WBC (0.0-0.8); Platelet Count 132 10^3/uL (150-450); Red Blood Count 5.59 10^6/uL (4.06-5.63); Red Cell Distribution Width 14.9 % (12-17); White Blood Count 12.8 10^3/uL (3.6-10.2)
[2023-11-26 06:37] LABS: Calcium 9.4 mg/dL (8.6-10.3); Creatinine, Serum 1.23 mg/dL (0.67-1.17); Phosphorus 3.3 mg/dL (2.5-5.0); Potassium 4.2 mmol/L (3.5-5.0); eGFR CKD-EPI 65.6 (>60)
[2023-11-26 06:52] LABS: TSH Ultra Thyroid Stim Horm 3.14 mcIU/mL (0.34-5.60)
[2023-11-26] MEDS: Mometasone/Formoter 200/5 MDI INH SCH (07:08)
[2023-11-26] MEDS: SPIRIVA Respimat (tiotropium) 2.5 mcg/inh Inhaler INH SCH (07:08)
[2023-11-26] MEDS: Cholecalciferol (VIT D3) 1,000 unit TAB PO SCH (07:50)
[2023-11-26] MEDS: Insulin GLARGINE 100 un/ml 10 ml VIAL SUBCUT SCH (07:51)
[2023-11-26] MEDS ORDERED: Albuterol HFA INHALER 8 gm MDI INH PRN (11:19)
[2023-11-26] MEDS: Empagliflozin 25 MG TAB PO SCH (11:49)
[2023-11-26 14:01] VITALS: BP 120/88
== END 2023-11-26 18:19 | disposition home or self-care (01) ==
LOC: MEDTELE 07:58 → OR 07:58 → SUATTDRO 18:23
PROVIDERS: ADMIT Surgery; ATTEND Internal Medicine